=== PATIENT | female | born 1970 | race African-American/Black ===

== ENCOUNTER 2016-12-06 22:03 | Emergency (ER) | payer OTHER ==
[2016-12-06 22:10] VITALS: BP 174/90; PULSE 77; TEMP 97.6; BMI 26.5
--- NOTE | 2016-12-06 22:41 | PDOC ---
History of Present Illness - General History Source: Patient Exam Limitations: No Limitations - History of Present Illness Initial Comments: 12/06/16 22:53 The patient is a 46 year old female (), with a significant past medical history of GERD, kidney stones, and renal calculi, who presents to the emergency department complaining of episodes of nausea and vomiting since approximately 20:45 this evening. The patient reports she had salmon for lunch at approximately 14:00 this afternoon, after which she was asymptomatic. The patient reports eating the same salmon, a cinnamon roll, and milk at approximately 20:45 after which she began to feel associated tightness in her throat. The patient denies any difficulty breathing or throat swelling. Subsequently she began to feel nauseous and reports approximately 5 episodes of emesis. The patient reports some episodes of hemoptysis. During examination, the patient experienced an emetic episode that was nonbloody/ nonbilious, and beige-colored. The patient denies any associated diarrhea or constipation. The patient denies any fever, chills, cough, headache, or dizziness. The patient denies any dysuria, hematuria, frequency, or urgency. The patient denies any recent travel or sick contacts. Allergies: NKDA, peanuts Past Surgical History: Cholecystectomy(2010) Social History: Non-smoker. Denies alcohol or drug use. PCP: Dr. Marilyn Tijerina <Tiffanie Page - Last Filed: 12/06/16 22:52> - General History Source: Patient <Reji Awad - Last Filed: 12/06/16 23:58> - General Chief Complaint: Nausea/Vomiting Stated Complaint: NAUSEA/VOMITING Time Seen by Provider: 12/06/16 22:41 Past History <Tiffanie Page - Last Filed: 12/06/16 22:52> - Past Medical History Anemia: No Asthma: No Cancer: No Cardiac Disorders: No CVA: No COPD: No CHF: No Dementia: No Diabetes: No GI Disorders: Yes (GERD) Disorders: Yes (RENAL CALCULI) HTN: No Hypercholesterolemia: No Kidney Stones: Yes Liver Disease: No Seizures: No Thyroid Disease: Yes - Surgical History Abdominal Surgery: No Appendectomy: No Cardiac Surgery: No Cholecystectomy: Yes (2010) Lung Surgery: No Neurologic Surgery: No Orthopedic Surgery: No - Reproductive History (#): 3 Para: 2 - Immunization History Immunization Up to Date: Yes - Psycho/Social/Smoking Cessation Hx Anxiety: No Suicidal Ideation: No Smoking History: Never smoked Have you smoked in the past 12 months: No Information on smoking cessation initiated: No Hx Alcohol Use: No Drug/Substance Use Hx: No Substance Use Type: None Hx Substance Use Treatment: No <Reji Awad - Last Filed: 12/06/16 23:58> - Past Medical History Allergies/Adverse Reactions: Allergies Allergy/AdvReac Type Severity Reaction Status Date / Time No Known Drug Allergies Allergy Verified 12/06/16 22:08 peanut Allergy Verified 12/06/16 22:08 Home Medications: Ambulatory Orders Unobtainable [Unobtainable] 03/02/16 Review of Systems - Review of Systems Able to Perform ROS?: Yes Comments:: 12/06/16 22:57 CONSTITUTIONAL: Absent: fever, no chills, no fatigue EYES: Absent: visual changes ENT: Present: +throat tightness Absent: ear pain, no sore throat CARDIOVASCULAR: Absent: chest pain, no palpitations RESPIRATORY: Absent: cough, no SOB GI: Present: +nausea, +vomiting, +hemoptysis Absent: abdominal pain, no constipation, no diarrhea GENITOURINARY: Absent: dysuria, no frequency, no hematuria MUSKULOSKELETAL: Absent: back pain, no arthralgia, no myalgia SKIN: Absent: rash NEURO: Absent: headache <Page,Giomilsy - Last Filed: 12/06/16 22:52> *Physical Exam - Vital Signs Last Vital Signs Temp Pulse Resp BP Pulse Ox 97.6 F 77 20 174/90 100 12/06/16 22:09 12/06/16 22:09 12/06/16 22:09 12/06/16 22:09 12/06/16 22:09 - Physical Exam Comments: 12/06/16 23:02 GENERAL: Well-appearing, well-nourished. No apparent distress. HEENT: Normocephalic, atraumatic. PERRLA, EOMI. No conjunctival pallor. Sclera are non- icteric. Moist mucous membranes. Oropharynx is clear. CARDIOVASCULAR: Normal S1, S2. Regular rate and rhythm. PULMONARY: Clear to auscultation bilaterally. ABDOMEN: Soft, non-distended. Epigastric tenderness to palpation with no guarding or rebound. EXTREMITIES: Normal ROM in all four extremities. No gross deformities. SKIN: Warm, dry. No rash NEUROLOGICAL: No focal neurological deficits. <Tiffanie Page - Last Filed: 12/06/16 22:52> - Vital Signs Last Vital Signs Temp Pulse Resp BP Pulse Ox 97.6 F 77 20 174/90 100 12/06/16 22:09 12/06/16 22:09 12/06/16 22:09 12/06/16 22:09 12/06/16 22:09 <Reji Awad - Last Filed: 12/06/16 23:58> ED Treatment Course - LABORATORY CBC & Chemistry Diagram: 12/06/16 20:45 12/06/16 20:45 - Medications Given in the ED: ED Medications Discontinued Medications Generic Name Dose Route Start Last Admin Trade Name Freq PRN Reason Stop Dose Admin Ondansetron HCl 4 mg 12/06/16 22:46 12/06/16 22:47 Zofran Injection IVPUSH 12/06/16 22:47 4 mg NOW ONE Administration Sodium Chloride 1,000 ml 12/06/16 22:46 12/06/16 22:46 Normal Saline - IV 12/06/16 22:47 1,000 ml NOW ONE Administration <Tiffanie Page - Last Filed: 12/06/16 22:52> - LABORATORY CBC & Chemistry Diagram: 12/06/16 20:45 12/06/16 20:45 <Reji Awad - Last Filed: 12/06/16 23:58> Medical Decision Making - Medical Decision Making 12/06/16 23:57 Dr. Awad: The scribe's documentation has been prepared under my direction and personally reviewed by me in its entirery. I confirm that the note above accurately reflects all work, treatment, procedures, and medical decision making performed by me. patient now feels better after treatment in the department. Will discharge <Reji Awad - Last Filed: 12/06/16 23:58> *DC/Admit/Observation/Transfer - Attestations Scribe Attestion: 12/06/16 23:04 Documentation prepared by Tiffanie Page, acting as medical services assistant for Reji Awad DO. <Tiffanie Page - Last Filed: 12/06/16 22:52> - Discharge Dispostion Admit: No <Reji Awad - Last Filed: 12/06/16 23:58> Diagnosis at time of Disposition: Abdominal pain Qualifiers: Abdominal location: generalized Qualified Code(s): R10.84 - Generalized abdominal pain Nausea & vomiting Qualifiers: Vomiting type: unspecified Vomiting Intractability: non-intractable Qualified Code(s): R11.2 - Nausea with vomiting, unspecified - Discharge Dispostion Disposition: HOME Condition at time of disposition: Stable - Referrals Referrals: Marilyn Tijerina [Primary Care Provider] - - Patient Instructions Printed Discharge Instructions: DI for Nausea -- Adult, DI for Vomiting -- Adult, DI for Abdominal Pain-Adult
[2016-12-06] MEDS ORDERED: SODIUM CHLORIDE 0.9% 1000 ML INFUS.BAG IV ONE (22:46)
[2016-12-06] MEDS ORDERED: ONDANSETRON 4 MG/2 ML VIAL IVPUSH ONE (22:46)
[2016-12-06 23:02] LABS: BASOPHIL 0.4 % (0-2.0); MCH 29.4 pg (25.7-33.7); MCHC 33.8 g/dl (32.0-36.0); MEAN PLT VOLUME 8.3 fl (7.5-11.1); NEUTROPHILS 59.9 % (42.8-82.8); PLATELET COUNT 246 K/MM3 (134-434); RDW 14.1 % (11.6-15.6)
[2016-12-06 23:16] LABS: ALBUMIN 3.8 g/dl (3.4-5.0); AMYLASE 83 U/L (25-115); ANION GAP 10 (8-16); BILIRUBIN,TOTAL 0.4 mg/dL (0.2-1.0); CALCIUM 9.2 mg/dL (8.5-10.1); CO2 26 mmol/L (21-32); CREATININE 0.8 mg/dL (0.55-1.02); GLUCOSE,RANDOM 92 mg/dL (74-106); SGPT/ALT 59 U/L (12-78); TOT PROT 7.3 g/dl (6.4-8.2)
[2016-12-06 23:17] LABS: ALK PHOS 91 U/L (45-117)
[2016-12-06 23:30] LABS: SGOT/AST 27 U/L (15-37)
== END 2016-12-07 00:07 | disposition home or self-care (01) ==
LOC: JER 22:03
DX: R10.84 Generalized abdominal pain (principal); R11.2 Nausea with vomiting, unspecified; K21.9 Gastro-esophageal reflux disease without esophagitis
CPT/HCPCS: 36415; 80053; 82150; 83690; 84703; 85025; 99281-25

== ENCOUNTER 2017-03-19 08:22 | Emergency (ER) | payer OTHER ==
[2017-03-19 08:33] VITALS: BP 138/95; PULSE 69; TEMP 97.9; BMI 30.1
[2017-03-19] MEDS ORDERED: KETOROLAC TROMETHAMINE 60 MG/2 ML VIAL IM ONE (09:39)
[2017-03-19] MEDS ORDERED: KETOROLAC TROMETHAMINE 60 MG/2 ML VIAL ONE (09:41)
--- NOTE | 2017-03-19 10:23 | PDOC ---
History of Present Illness - General Chief Complaint: Pain, Acute Stated Complaint: PAIN/ SHOULDERS, BACK Time Seen by Provider: 03/19/17 08:58 History Source: Patient Exam Limitations: No Limitations - History of Present Illness Initial Comments: 03/19/17 10:22 46 yr female with c/o waking up with neck pain 3-4 days ago getting worse with movement. no fever or headache. pt did not take any meds for pain. Past History - Past Medical History Allergies/Adverse Reactions: Allergies Allergy/AdvReac Type Severity Reaction Status Date / Time No Known Drug Allergies Allergy Verified 03/19/17 08:32 peanut Allergy Verified 03/19/17 08:32 Home Medications: Ambulatory Orders Diazepam [Valium] 2 mg PO TID PRN #12 tablet MDD 6mg 03/19/17 Naproxen [Naprosyn -] 500 mg PO BID PRN #14 tablet 03/19/17 Anemia: No Asthma: No Cancer: No Cardiac Disorders: No CVA: No COPD: No CHF: No Dementia: No Diabetes: No GI Disorders: Yes (GERD) Disorders: Yes (RENAL CALCULI) HTN: No Hypercholesterolemia: No Kidney Stones: Yes Liver Disease: No Seizures: No Thyroid Disease: Yes - Surgical History Abdominal Surgery: No Appendectomy: No Cardiac Surgery: No Cholecystectomy: Yes (2010) Lung Surgery: No Neurologic Surgery: No Orthopedic Surgery: No - Reproductive History (#): 3 Para: 2 - Immunization History Immunization Up to Date: Yes - Psycho/Social/Smoking Cessation Hx Anxiety: No Suicidal Ideation: No Smoking History: Never smoked Have you smoked in the past 12 months: No Information on smoking cessation initiated: No Hx Alcohol Use: No Drug/Substance Use Hx: No Substance Use Type: None Hx Substance Use Treatment: No *Physical Exam - Vital Signs Last Vital Signs Temp Pulse Resp BP Pulse Ox 97.9 F 69 18 138/95 100 03/19/17 08:31 03/19/17 08:31 03/19/17 08:31 03/19/17 08:31 03/19/17 08:31 - Physical Exam General Appearance: Yes: Nourished, Appropriately Dressed HEENT: positive: EOMI, TRUDY, Normal ENT Inspection, TMs Normal, Pharynx Normal Neck: positive: Normal Thyroid, Supple, Tender lateral (right muscle spasm TTP trapezius muscle right ). negative: Tender, Lymphadenopathy (R), Lymphadenopathy (L), Rigidity, Tender midline Respiratory/Chest: positive: Lungs Clear, Normal Breath Sounds Cardiovascular: positive: Regular Rhythm, Regular Rate Gastrointestinal/Abdominal: positive: Normal Bowel Sounds, Soft Musculoskeletal: positive: Normal Inspection Extremity: positive: Normal Capillary Refill, Normal Inspection, Normal Range of Motion Integumentary: positive: Normal Color, Dry, Warm Neurologic: positive: Fully Oriented, Alert, Normal Mood/Affect, Normal Response , Motor Strength 02/22 ED Treatment Course - ADDITIONAL ORDERS Additional order review: Laboratory Results 03/19/17 08:52 Urine HCG, Qual Negative - RADIOLOGY Radiology Studies Ordered: Category Date Time Status SPINE-CERVICAL [RAD] Stat Radiology 03/19/17 09:39 Taken - Medications Given in the ED: ED Medications Discontinued Medications Generic Name Dose Route Start Last Admin Trade Name Freq PRN Reason Stop Dose Admin Ketorolac Tromethamine 60 mg 03/19/17 09:39 03/19/17 09:40 Toradol Injection - IM 03/19/17 09:40 60 mg ONCE ONE Administration Medical Decision Making - Medical Decision Making 03/19/17 10:40 cc: woke up 3 days ago with nuck pain now has spasm limited ROM due to pain pt denies trauma no fever, no headache no foreign travel will give toradol neck xray 03/19/17 18:42 xray reviewed with pt. pt is to follow with orthopedist this week, call tomorrow to make appointment pt understands the follow up plan all questions asked and answered at discharge. 03/19/17 18:43 *DC/Admit/Observation/Transfer Diagnosis at time of Disposition: Muscle spasm - Discharge Dispostion Disposition: HOME Condition at time of disposition: Good - Prescriptions Prescriptions: Naproxen [Naprosyn -] 500 mg PO BID PRN #14 tablet PRN Reason: Pain Diazepam [Valium] 2 mg PO TID PRN #12 tablet MDD 6mg PRN Reason: Muscle Spasms - Referrals Referrals: Marilyn Tijerina [Primary Care Provider] - Kit Rainey MD [Staff Physician] - - Patient Instructions Printed Discharge Instructions: DI for Muscle Strain Additional Instructions: take the medication as prescribed for inflamation, pain and muscle spasm apply warm compresses, heating pad to area of pain every 3 hrs for 20 minutes follow with the orthopedist or tomorrow Return if any worsening symptoms [place] la medicacin segn lo prescrito para la inflamacin, el dolor y el espasmo del msculo Aplique compresas calientes, almohadilla de calefaccin al meena del dolor cada 3 horas por 20 minutos Seguir con el ortopedista o maana Devolver si hay sntomas que empeoran Print Language: FAROESE - Post Discharge Activity Work/School Note: Back to Work
== END 2017-03-19 10:54 | disposition home or self-care (01) ==
LOC: JERFT 08:22
PROC: 3E0233Z Introduction of Anti-inflammatory into Muscle, Percutaneous Approach (ICD-10-PCS; principal; 2017-03-19)
DX: M62.838 Other muscle spasm (principal)
CPT/HCPCS: 72050-TC; 84703; 96372; 99281-25

== ENCOUNTER 2017-07-10 19:22 | Emergency (ER) | payer OTHER ==
[2017-07-10 19:34] VITALS: TEMP 98.5
[2017-07-10 22:45] LABS: BASOPHIL 0.8 % (0-2.0); MCH 29.6 pg (25.7-33.7); MCHC 33.6 g/dl (32.0-36.0); MEAN CELL VOLUME 88.1 fl (80-96); MEAN PLT VOLUME 8.1 fl (7.5-11.1); NEUTROPHILS 57.7 % (42.8-82.8); PLATELET COUNT 226 K/MM3 (134-434); RDW 14.8 % (11.6-15.6); WHITE BLOOD COUNT 9.8 K/mm3 (4.0-10.0)
[2017-07-10 22:57] LABS: URINE APPEARANCE CLEAR; URINE BILIRUBIN NEGATIVE (NEGATIVE); URINE BLOOD NEGATIVE (NEGATIVE); URINE COLOR STRAW; URINE GLUCOSE (UA) NEGATIVE (NEGATIVE); URINE KETONE NEGATIVE (NEGATIVE); URINE LEUK ESTERASE NEGATIVE (NEGATIVE); URINE NITRITE NEGATIVE (NEGATIVE); URINE PROTEIN NEGATIVE (NEGATIVE); URINE UROBILINOGEN NEGATIVE mg/dL (0.2-1.0)
[2017-07-10] MEDS ORDERED: KETOROLAC TROMETHAMINE 30 MG/1 ML VIAL IM ONE (23:13)
[2017-07-10] MEDS ORDERED: diazePAM 5 MG TABLET PO ONE (23:14)
[2017-07-10 23:18] LABS: ALBUMIN 3.9 g/dl (3.4-5.0); ANION GAP 8 (8-16); BILIRUBIN,TOTAL 0.5 mg/dL (0.2-1.0); CO2 25 mmol/L (21-32); CREATININE 0.8 mg/dL (0.55-1.02); GLUCOSE,RANDOM 83 mg/dL (74-106); SGOT/AST 19 U/L (15-37); SGPT/ALT 36 U/L (12-78); TOT PROT 7.7 g/dl (6.4-8.2)
[2017-07-10 23:20] LABS: ALK PHOS 99 U/L (45-117); CPK 128 IU/L (26-192); TROPONIN I 0.03 ng/ml (0.00-0.05)
[2017-07-10] MEDS ORDERED: diazePAM 5 MG TABLET ONE (23:23)
[2017-07-10] MEDS ORDERED: KETOROLAC TROMETHAMINE 30 MG/1 ML VIAL ONE (23:24)
--- NOTE | 2017-07-11 00:54 | PDOC ---
History of Present Illness - General Chief Complaint: Pain Stated Complaint: PAIN, ACUTE Time Seen by Provider: 07/10/17 21:35 History Source: Patient, Trim Mounter Used Exam Limitations: Language Barrier - History of Present Illness Initial Comments: 07/11/17 00:50 47yo Female patient w/ PmHx: Right arm pain and diffuse musculoskeletal pain presents to ED c/o bilateral arm pain w/ diffuse muscle pain x 3 days not getting better. Patient states she use to see a "doctor for injections." She does not remember this doctor or what medication was given. She denies CP, Abd pain, diff breathing, shortness of breath, rash, or any other complaints at this time. Patient is not really clear as to why she is here. Difficulty with social media intern and getting information from patient as to what brought her to ED. Ranch Helper had to clarify patients' response to my question every time a question was asked. Ranch Helper [id number] Past History - Travel Traveled outside of the country in the last 30 days: No Close contact w/someone who was outside of country & ill: No - Past Medical History Allergies/Adverse Reactions: Allergies Allergy/AdvReac Type Severity Reaction Status Date / Time No Known Drug Allergies Allergy Verified 07/10/17 19:32 peanut Allergy Verified 07/10/17 19:32 Home Medications: Ambulatory Orders Diazepam [Valium] 2 mg PO TID PRN #12 tablet MDD 6mg 03/19/17 Naproxen [Naprosyn -] 500 mg PO BID PRN #14 tablet 03/19/17 Ibuprofen 600 mg PO Q6H PRN #30 tablet 07/11/17 Methocarbamol [Robaxin -] 750 mg PO Q8H PRN #21 tablet 07/11/17 Anemia: No Asthma: No Cancer: No Cardiac Disorders: No CVA: No COPD: No CHF: No Dementia: No Diabetes: No GI Disorders: Yes (GERD) Disorders: Yes (RENAL CALCULI) HTN: No Hypercholesterolemia: No Kidney Stones: Yes Liver Disease: No Seizures: No Thyroid Disease: Yes - Surgical History Abdominal Surgery: No Appendectomy: No Cardiac Surgery: No Cholecystectomy: Yes (2010) Lung Surgery: No Neurologic Surgery: No Orthopedic Surgery: No - Reproductive History (#): 3 Para: 2 - Immunization History Immunization Up to Date: Yes - Suicide/Smoking/Psychosocial Hx Smoking History: Never smoked Have you smoked in the past 12 months: No Hx Alcohol Use: No Drug/Substance Use Hx: No Substance Use Type: None Hx Substance Use Treatment: No Review of Systems - Review of Systems Able to Perform ROS?: Yes Is the patient limited [place]an proficient: No Constitutional: No: Chills, Fever Musculoskeletal: Yes: Joint Pain, Muscle Pain All Other Systems: Reviewed and Negative *Physical Exam - Vital Signs Last Vital Signs Temp Pulse Resp BP Pulse Ox 98.5 F 73 18 147/93 100 07/10/17 19:32 07/10/17 19:32 07/10/17 19:32 07/10/17 19:32 07/10/17 19:32 - Physical Exam General Appearance: Yes: Nourished, Appropriately Dressed. No: Apparent Distress, Mild Distress, Moderate Distress, Severe Distress Neck: positive: Trachea midline, Normal Thyroid, Supple. negative: Stridor, Lymphadenopathy (R), Lymphadenopathy (L) Respiratory/Chest: positive: Lungs Clear, Normal Breath Sounds. negative: Chest Tender, Respiratory Distress, Accessory Muscle Use, Labored Respiration, Rapid RR, Rhonchi, Stridor, Wheezing Cardiovascular: positive: Regular Rhythm, Regular Rate Gastrointestinal/Abdominal: positive: Normal Bowel Sounds, Soft. negative: Distended, Guarding, Rebound, Tenderness Musculoskeletal: positive: Normal Inspection. negative: CVA Tenderness, Decreased Range of Motion, Vertebral Tenderness Extremity: positive: Normal Capillary Refill, Normal Inspection, Normal Range of Motion. negative: Pedal Edema, Swelling, Calf Tenderness, Erythema, Inflammation Integumentary: positive: Normal Color, Dry, Warm. negative: Erythema, Diaphoresis, Hives, Rash, Swelling Neurologic: positive: sales marketing II-XII NML intact, Fully Oriented, Alert, Normal Mood/ Affect, Normal Response, Motor Strength 5/5 ED Treatment Course - LABORATORY CBC & Chemistry Diagram: 07/10/17 22:30 07/10/17 22:30 - ADDITIONAL ORDERS Additional order review: Laboratory Results 07/10/17 07/10/17 22:45 22:30 Sodium 139 Potassium 4.4 Chloride 106 Carbon Dioxide 25 Anion Gap 8 BUN 16 Creatinine 0.8 Creat Clearance w eGFR > 60 Random Glucose 83 Calcium 9.0 Total Bilirubin 0.5 AST 19 D ALT 36 D Alkaline Phosphatase 99 Creatine Kinase 128 Troponin I 0.03 Total Protein 7.7 Albumin 3.9 Urine Color Straw Urine Appearance Clear Urine pH 7.0 Urine Protein Negative Urine Glucose (UA) Negative Urine Ketones Negative Urine Blood Negative Urine Nitrite Negative Urine Bilirubin Negative Urine Urobilinogen Negative Urine HCG, Qual Negative 07/10/17 22:30 RBC 4.32 MCV 88.1 MCHC 33.6 RDW 14.8 MPV 8.1 Neutrophils % 57.7 Lymphocytes % 31.4 Monocytes % 9.1 Eosinophils % 1.0 Basophils % 0.8 - Medications Given in the ED: ED Medications Discontinued Medications Generic Name Dose Route Start Last Admin Trade Name Freq PRN Reason Stop Dose Admin Diazepam 5 mg 07/10/17 23:14 07/10/17 23:29 Valium - PO 07/10/17 23:15 5 mg ONCE ONE Administration Ketorolac Tromethamine 30 mg 07/10/17 23:13 07/10/17 23:29 Toradol Injection - IM 07/10/17 23:14 30 mg ONCE ONE Administration *DC/Admit/Observation/Transfer Diagnosis at time of Disposition: Musculoskeletal pain - Discharge Dispostion Disposition: HOME Condition at time of disposition: Improved Admit: No - Prescriptions Prescriptions: Ibuprofen 600 mg PO Q6H PRN #30 tablet PRN Reason: Mild Pain Methocarbamol [Robaxin -] 750 mg PO Q8H PRN #21 tablet PRN Reason: Muscle Pain - Referrals Referrals: Marilyn Tijerina [Primary Care Provider] - Kit Rainey MD [Staff Physician] - - Patient Instructions Printed Discharge Instructions: DI for Musculoskeletal Pain Additional Instructions: Jose el seguimiento con cisse proveedor de atencin primaria esta semana. Llame para programar tl colette para tl evaluacin ms detallada. Isabella la medicacin segn lo prescrito. Seguimiento con el Dr. Rainey / jayme (ortopedista). Follow up with your primary care provider this week. Call to schedule appointment for further evaluation. Take medication as prescribed. Follow up with Dr. Rainey/Concepción (Orthopedist). Print Language: KHMER - Post Discharge Activity
[2017-07-11] MEDS ORDERED: DEXAMETHASONE SOD PHOSPHATE 10 MG/1 ML VIAL IM ONE (00:57)
--- NOTE | 2017-07-11 01:02 | PDOC ---
*Physical Exam - Vital Signs Last Vital Signs Temp Pulse Resp BP Pulse Ox 98.5 F 73 18 147/93 100 07/10/17 19:32 07/10/17 19:32 07/10/17 19:32 07/10/17 19:32 07/10/17 19:32 ED Treatment Course - LABORATORY CBC & Chemistry Diagram: 07/10/17 22:30 07/10/17 22:30 - ADDITIONAL ORDERS Additional order review: Laboratory Results 07/10/17 07/10/17 22:45 22:30 Sodium 139 Potassium 4.4 Chloride 106 Carbon Dioxide 25 Anion Gap 8 BUN 16 Creatinine 0.8 Creat Clearance w eGFR > 60 Random Glucose 83 Calcium 9.0 Total Bilirubin 0.5 AST 19 D ALT 36 D Alkaline Phosphatase 99 Creatine Kinase 128 Troponin I 0.03 Total Protein 7.7 Albumin 3.9 Urine Color Straw Urine Appearance Clear Urine pH 7.0 Urine Protein Negative Urine Glucose (UA) Negative Urine Ketones Negative Urine Blood Negative Urine Nitrite Negative Urine Bilirubin Negative Urine Urobilinogen Negative Urine HCG, Qual Negative 07/10/17 22:30 RBC 4.32 MCV 88.1 MCHC 33.6 RDW 14.8 MPV 8.1 Neutrophils % 57.7 Lymphocytes % 31.4 Monocytes % 9.1 Eosinophils % 1.0 Basophils % 0.8 - Medications Given in the ED: ED Medications Discontinued Medications Generic Name Dose Route Start Last Admin Trade Name Lópezq PRN Reason Stop Dose Admin Diazepam 5 mg 07/10/17 23:14 07/10/17 23:29 Valium - PO 07/10/17 23:15 5 mg ONCE ONE Administration Ketorolac Tromethamine 30 mg 07/10/17 23:13 07/10/17 23:29 Toradol Injection - IM 07/10/17 23:14 30 mg ONCE ONE Administration Medical Decision Making - Medical Decision Making 07/11/17 01:02 agree with care from JONES Lennon *DC/Admit/Observation/Transfer - Referrals Referrals: Marilyn Tijerina [Primary Care Provider] - - Patient Instructions Print Language: NEPALI - Post Discharge Activity
[2017-07-11] MEDS ORDERED: DEXAMETHASONE SOD PHOSPHATE 10 MG/1 ML VIAL ONE (01:52)
[2017-07-11 01:59] VITALS: BP 141/89; PULSE 70
--- NOTE | 2017-07-11 10:25 | EKG ---
Test Reason : Blood Pressure : / mmHG Vent. Rate : 059 BPM Atrial Rate : 059 BPM P-R Int : 178 ms QRS Dur : 070 ms QT Int : 382 ms P-R-T Axes : 048 056 020 degrees QTc Int : 378 ms SINUS BRADYCARDIA OTHERWISE NORMAL ECG WHEN COMPARED WITH ECG OF 10-DEC-2015 08:05, VENT. RATE HAS DECREASED BY 42 BPM NONSPECIFIC T WAVE ABNORMALITY NO LONGER EVIDENT IN ANTERIOR LEADS Confirmed by LIVIA CALLEJAS, SUZETTE ([id number]) on 07/11/2017 10:25:13 AM Referred By: Confirmed By:SUZETTE BHAKTA MD
== END 2017-07-11 02:05 | disposition home or self-care (01) ==
LOC: JER 19:22
PROC: 3E023GC Introduction of Other Therapeutic Substance into Muscle, Percutaneous Approach (ICD-10-PCS; principal; 2017-07-10)
PROC: 3E0233Z Introduction of Anti-inflammatory into Muscle, Percutaneous Approach (ICD-10-PCS; 2017-07-10)
DX: M79.1 Myalgia (principal)
CPT/HCPCS: 36415; 80053; 81003; 84484; 84703; 85025; 93005; 93010; 99282-25

== ENCOUNTER 2017-10-15 15:53 | Emergency (ER) | payer OTHER ==
--- NOTE | 2017-10-15 16:05 | PDOC ---
Rapid Medical Evaluation Chief Complaint: Lightheaded Time Seen by Provider: 10/15/17 16:02 Medical Evaluation: Allergies Allergy/AdvReac Type Severity Reaction Status Date / Time No Known Drug Allergies Allergy Verified 10/15/17 16:02 peanut Allergy Verified 10/15/17 16:02 10/15/17 16:02 Pt presents to the ED: feels dizzy and feels like she is notting getting air Pt on brief exam: bp 166/103, lcta Pt ordered for : ekg Pt to proceed to the ED Discharge Disposition - Diagnosis Dizziness - Referrals - Patient Instructions - Post Discharge Activity
[2017-10-15 16:08] VITALS: BMI 30.2
[2017-10-15] MEDS ORDERED: MECLIZINE HCL 25 MG TABLET (FP) PO ONE (22:35)
[2017-10-15] MEDS ORDERED: MECLIZINE HCL 25 MG TABLET (FP) ONE ×2 (23:05→23:36)
--- NOTE | 2017-10-15 23:30 | PDOC ---
History of Present Illness - General History Source: Patient Exam Limitations: No Limitations - History of Present Illness Initial Comments: This is a 47 YOF with h/o kidney stones, cholecystectomy, and x2 who presents c/o mild dizziness, dry cough, and mild SOB for the past 5 days. She has not taken any medications for the symptoms and has not had this dizziness or SOB before. She denies any recent sick contacts, and denies any chest pain, fever, chills, nausea, vomiting, numbness, tingling, focal weakness, change in vision, sore throat, headache, palpitations, leg swelling, personal or family history of blood clots, recent immobilization or surgery or travel, exogenous estrogen or OCP use. <Paige Johnson - Last Filed: 10/15/17 22:37> <Addi Portillo - Last Filed: 10/16/17 01:40> - General Chief Complaint: Lightheaded Stated Complaint: SHORTNESS OF BREATH Time Seen by Provider: 10/15/17 16:02 Past History - Past Medical History Anemia: No Asthma: No Cancer: No Cardiac Disorders: No CVA: No COPD: No CHF: No Dementia: No Diabetes: No GI Disorders: Yes (GERD) Disorders: Yes (RENAL CALCULI) HTN: No Hypercholesterolemia: No Kidney Stones: Yes Liver Disease: No Seizures: No Thyroid Disease: Yes - Surgical History Abdominal Surgery: No Appendectomy: No Cardiac Surgery: No Cholecystectomy: Yes (2010) Lung Surgery: No Neurologic Surgery: No Orthopedic Surgery: No - Reproductive History (#): 3 Para: 2 - Immunization History Immunization Up to Date: Yes - Suicide/Smoking/Psychosocial Hx Smoking History: Never smoked Have you smoked in the past 12 months: No Hx Alcohol Use: No Drug/Substance Use Hx: No Substance Use Type: None Hx Substance Use Treatment: No <Paige Johnson - Last Filed: 10/15/17 22:37> <Addi Portillo - Last Filed: 10/16/17 01:40> - Past Medical History Allergies/Adverse Reactions: Allergies Allergy/AdvReac Type Severity Reaction Status Date / Time No Known Drug Allergies Allergy Verified 10/15/17 16:02 peanut Allergy Verified 10/15/17 16:02 Home Medications: Ambulatory Orders Naproxen [Naprosyn -] 500 mg PO BID PRN #14 tablet 03/19/17 Methocarbamol [Robaxin -] 750 mg PO Q8H PRN #21 tablet 07/11/17 Meclizine HCl [Antivert -] 25 mg PO TID #21 tablet 10/16/17 *Physical Exam - Vital Signs Last Vital Signs Temp Pulse Resp BP Pulse Ox 98.3 F 72 20 166/103 100 10/15/17 16:03 10/15/17 16:03 10/15/17 16:03 10/15/17 16:03 10/15/17 16:03 <Paige Johnson - Last Filed: 10/15/17 22:37> - Vital Signs Last Vital Signs Temp Pulse Resp BP Pulse Ox 98.2 F 63 18 144/97 100 10/16/17 01:32 10/16/17 01:32 10/16/17 01:32 10/16/17 01:32 10/16/17 01:32 <Addi Portillo - Last Filed: 10/16/17 01:40> ED Treatment Course - RADIOLOGY Radiology Studies Ordered: Category Date Time Status CHEST PA & LAT [RAD] Stat Radiology 10/15/17 22:35 Ordered <aPige Johnson - Last Filed: 10/15/17 22:37> - ADDITIONAL ORDERS Additional order review: Laboratory Results 10/15/17 22:36 Urine HCG, Qual Negative - Medications Given in the ED: ED Medications Discontinued Medications Generic Name Dose Route Start Last Admin Trade Name Freq PRN Reason Stop Dose Admin Meclizine HCl 25 mg 10/15/17 22:35 10/15/17 23:00 Antivert - PO 10/15/17 22:36 25 mg ONCE ONE Administration <Addi Portillo - Last Filed: 10/16/17 01:40> Medical Decision Making - Medical Decision Making 47 YOF presents with mild vertigo, mild SOB, and mild dry cough for the past 5 days. On exam VS wnl, there is no nystagmus on lateral gaze, neuro exam wnl, normal heart/lung sounds, normal HEENT exam. DDX IBNLT URI with vertigo, bronchitis/PNA, PE, ACS, etc. Ordered is EKG, U-preg and CXR, Meclizine 25 mg. <Paige Johnson - Last Filed: 10/15/17 22:37> *DC/Admit/Observation/Transfer - Discharge Dispostion Admit: No <Paige Johnson - Last Filed: 10/15/17 22:37> <Addi Portillo - Last Filed: 10/16/17 01:40> Diagnosis at time of Disposition: Dizziness, Cough Hypertension Qualifiers: Hypertension type: unspecified Qualified Code(s): I10 - Essential (primary) hypertension - Discharge Dispostion Disposition: HOME Condition at time of disposition: Stable - Referrals Referrals: pmd, one week [Other] - Patient Instructions Printed Discharge Instructions: DI for Vertigo, High Blood Pressure Additional Instructions: Haz visto en la sabiha de emergencias por mareos, toz, y dificultad respirar. Hicimos tl electrocardiograma, tl placa del pecho, y todo es normal. No esta embarazada. Dimos un medicamento por los mareos que se llama meclizine. Por favor usa meclizine si tiene mareos en casa (puede comprarlo en la farmacia). Es importante hacer tl colette con cisse doctor regular por 2-3 arias. Regrese a la sabiha de emergencias si tiene sintomas nuevas o que empeoran, zahra fiebre, dolor de theresa, dolor de pecho, palpitaciones, entumecimiento, hormigueo, debilidad de un parte del cuerpo, o otra sintoma. Print Language: KYRGYZ
--- NOTE | 2017-10-16 00:59 | PDOC ---
Attending Attestation - HPI HPI: 10/16/17 01:04 The patient is a 47 year old female, with a significant past medical history of kidney stones, cholecystectomy, and x2, who presents to the emergency department with mild shortness of breath, non-productive cough, and dizziness for about 5 days. She describes the dizziness as the bed moves as she is lying flat. She denies experiencing these symptoms in the past. She denies any recent sick contacts. She denies chest pain, headache. She denies fever, chills, nausea, vomit, diarrhea and constipation. She denies dysuria, frequency, urgency and hematuria. Allergies: NKDA - Documentation prepared by Cora Martin, acting as medical coding instructor for Addi Portillo MD <Cora Martin - Last Filed: 10/16/17 01:04> - Resident Resident Name: Paige Johnson - ED Attending Attestation I have performed the following: I have examined & evaluated the patient, The case was reviewed & discussed with the resident, I agree w/resident's findings & plan, Exceptions are as noted - Physicial Exam PE: 10/16/17 00:57 Patient is awake and alert, well-nourished, hypertensive on initial evaluation EXAMINATION CONSTITUTIONAL: Well-appearing; well-nourished; in no apparent distress HEAD: Normocephalic; atraumatic EYES: PERRL; EOM intact ENMT: External appears normal; normal oropharynx NECK: Supple; non-tender; no cervical lymphadenopathy CARD: Normal S1, S2; no murmurs, rubs, or gallops RESP: Normal chest excursion with respiration; breath sounds clear and equal bilaterally; no wheezes, rhonchi, or rales ABD: Soft, non-distended; non-tender; no palpable organomegaly, no palpable hernias EXT: Normal ROM in all four extremities; non-tender to palpation; distal pulses intact SKIN: Warm, dry, no rash NEURO: Cranial nerves II through XII are grossly intact; motor is 5 of 54; no pronation drift; gait is stable - Medical Decision Making 10/16/17 00:58 Patient is a well-appearing 47-year-old woman who presents with dizziness ( vertigo-like), shortness of breath and mild nonproductive cough for the past 5 days. Patient is mildly hypertensive on initial evaluation. EKG reveals no evidence of acute ischemia. Serial neurological exams within normal limit. Chest x-ray reveals no evidence of cardiomegaly/infiltrate or effusion. Patient is negative for PE by perc rule. I do not suspect ACS or posterior circulation deficiency. Viral syndrome suspected. We'll reassess. Likely discharge. 10/16/17 01:37 Patient reassessed. Patient is asymptomatic, blood pressure has decreased without intervention. No indication for initiation of antihypertensive therapy in the ED at this time. Will discharge with outpatient follow-up. <Addi Portillo - Last Filed: 10/16/17 01:38>
[2017-10-16 01:35] VITALS: BP 144/97; PULSE 63; TEMP 98.2
--- NOTE | 2017-10-16 13:26 | EKG ---
Test Reason : Blood Pressure : / mmHG Vent. Rate : 066 BPM Atrial Rate : 066 BPM P-R Int : 172 ms QRS Dur : 068 ms QT Int : 382 ms P-R-T Axes : 056 060 020 degrees QTc Int : 400 ms NORMAL SINUS RHYTHM NORMAL ECG WHEN COMPARED WITH ECG OF 10-JUL-2017 23:20, NO SIGNIFICANT CHANGE WAS FOUND Confirmed by BERKLEY GOMEZ MD ([id number]) on 10/16/2017 1:26:02 PM Referred By: Confirmed By:BERKLEY GOMEZ MD
--- NOTE | 2017-10-23 13:25 | EKG ---
Test Reason : Blood Pressure : / mmHG Vent. Rate : 071 BPM Atrial Rate : 071 BPM P-R Int : 178 ms QRS Dur : 066 ms QT Int : 394 ms P-R-T Axes : 073 072 033 degrees QTc Int : 428 ms NORMAL SINUS RHYTHM POSSIBLE LEFT ATRIAL ENLARGEMENT BORDERLINE ECG WHEN COMPARED WITH ECG OF 15-OCT-2017 16:11, NO SIGNIFICANT CHANGE WAS FOUND Confirmed by EDI DEAL MD ([id number]) on 10/23/2017 1:24:39 PM Referred By: Confirmed By:EDI DEAL MD
== END 2017-10-16 01:48 | disposition home or self-care (01) ==
LOC: JER 15:53
DX: I10 Essential (primary) hypertension (principal); R42 Dizziness and giddiness; R06.02 Shortness of breath
CPT/HCPCS: 71020-TC; 84703; 93005; 93010; 99283-25

== ENCOUNTER 2018-01-27 00:02 | Emergency (ER) | payer OTHER ==
[2018-01-27 00:24] VITALS: BMI 33.0
--- NOTE | 2018-01-27 01:54 | PDOC ---
History of Present Illness - General History Source: Patient Exam Limitations: No Limitations - History of Present Illness Initial Comments: 01/27/18 02:07 The patient is a 47 year old female with a significant past medical history of ovarian cyst who presents to the ED with complaints of back pain and abdominal pain for 2 days. The patient reports bilateral lower back pain that radiates to her abdomen. Patient states her pain is worsened at night. Patient also reports dysuria, one episode of hematuria, generalized weakness and slight nausea associated with present symptoms. She states she had one bowel movement earlier today after 2 days of constipation. She reports taking advil with slight relief of present symptoms. Denies fever or chills. Denies chest pain or shortness of breath. Denies flank pain. Denies any other symptoms. <Amara iMchelle - Last Filed: 01/27/18 04:25> <Taty Mccartney - Last Filed: 02/01/18 19:41> - General Chief Complaint: Back Pain Stated Complaint: BACK PAIN Time Seen by Provider: 01/27/18 00:52 Past History <Amara Michelle - Last Filed: 01/27/18 04:25> - Past Medical History Anemia: No Asthma: No Cancer: No Cardiac Disorders: No CVA: No COPD: No CHF: No Dementia: No Diabetes: No GI Disorders: Yes (GERD) Disorders: Yes (RENAL CALCULI) HTN: No Hypercholesterolemia: No Kidney Stones: Yes Liver Disease: No Seizures: No Thyroid Disease: Yes - Surgical History Abdominal Surgery: No Appendectomy: No Cardiac Surgery: No Cholecystectomy: Yes (2010) Lung Surgery: No Neurologic Surgery: No Orthopedic Surgery: No - Reproductive History (#): 3 Para: 2 - Immunization History Immunization Up to Date: Yes - Suicide/Smoking/Psychosocial Hx Smoking History: Never smoked Have you smoked in the past 12 months: No Hx Alcohol Use: No Drug/Substance Use Hx: No Substance Use Type: None Hx Substance Use Treatment: No <Taty Mccartney - Last Filed: 02/01/18 19:41> - Past Medical History Allergies/Adverse Reactions: Allergies Allergy/AdvReac Type Severity Reaction Status Date / Time No Known Drug Allergies Allergy Verified 01/27/18 00:05 peanut Allergy Verified 01/27/18 00:05 Home Medications: Ambulatory Orders Naproxen [Naprosyn -] 500 mg PO BID PRN #14 tablet 03/19/17 Methocarbamol [Robaxin -] 750 mg PO Q8H PRN #21 tablet 07/11/17 Meclizine HCl [Antivert -] 25 mg PO TID #21 tablet 10/16/17 Azithromycin [Zithromax Tri-Mango (3 DAYS) -] 500 mg PO DAILY #3 tablet 01/27/18 Sulfamethoxazole/Trimethoprim [Bactrim Ds -] 1 tab PO BID #14 tablet 01/29/18 Review of Systems - Review of Systems Able to Perform ROS?: Yes Comments:: 01/27/18 02:07 CONSTITUTIONAL: + generalized weakness Absent: fever, chills, diaphoresis, malaise, loss of appetite HEENT: Absent: rhinorrhea, nasal congestion, throat pain, throat swelling, difficulty swallowing, mouth swelling, ear pain, eye pain, visual Changes CARDIOVASCULAR: Absent: chest pain, syncope, palpitations, irregular heart rate, lightheadedness , peripheral edema RESPIRATORY: Absent: cough, shortness of breath, dyspnea with exertion, orthopnea, wheezing, stridor, hemoptysis GASTROINTESTINAL: + abdominal pain, nausea Absent: abdominal distension, vomiting, diarrhea, constipation, melena, hematochezia GENITOURINARY: + dysuria, hematuria Absent: frequency, urgency, hesitancy, flank pain, genital pain MUSCULOSKELETAL: + back pain Absent: myalgia, arthralgia, joint swelling SKIN: Absent: rash, itching, pallor HEMATOLOGIC/IMMUNOLOGIC: Absent: easy bleeding, easy bruising, lymphadenopathy, frequent infections ENDOCRINE: Absent: unexplained weight gain, unexplained weight loss, heat intolerance, cold intolerance NEUROLOGIC: Absent: headache, focal weakness or paresthesias, dizziness, unsteady gait, seizure, mental status changes, bladder or bowel incontinence PSYCHIATRIC: Absent: anxiety, depression, suicidal or homicidal ideation, hallucinations. All Other Systems: Reviewed and Negative <Amara Michelle - Last Filed: 01/27/18 04:25> *Physical Exam - Vital Signs Last Vital Signs Temp Pulse Resp BP Pulse Ox 97.9 F 75 16 154/100 97 01/27/18 00:06 01/27/18 00:06 01/27/18 00:06 01/27/18 00:06 01/27/18 00:06 - Physical Exam Comments: 01/27/18 02:07 GENERAL: Well developed, well nourished. Awake and alert. No acute distress. HEENT: Normocephalic, atraumatic. PERRLA, EOMI. No conjunctival pallor. Sclera are non- icteric. Moist mucous membranes. Oropharynx is clear. NECK: Supple. Full ROM. No JVD. Carotid pulses 2+ and symmetric, without bruits. No thyromegaly. No lymphadenopathy. CARDIOVASCULAR: Regular rate and rhythm. No murmurs, rubs, or gallops. Distal pulses are 2+ and symmetric. PULMONARY: No evidence of respiratory distress. Lungs clear to auscultation bilaterally. No wheezing, rales or rhonchi. ABDOMINAL: + gassy bowel sounds, diffuse tenderness Soft. Non-distended. No rebound or guarding. No organomegaly. MUSCULOSKELETAL Normal range of motion at all joints. No bony deformities or tenderness. No CVA tenderness. EXTREMITIES: No cyanosis. No clubbing. No edema. No calf tenderness. SKIN: Warm and dry. Normal capillary refill. No rashes. No jaundice. NEUROLOGICAL: Alert, awake, appropriate. Cranial nerves 2-12 intact. No deficits to light touch and temperature in face, upper extremities and lower extremities. No motor deficits in the in face, upper extremities and lower extremities. Normoreflexic in the upper and lower extremities. Normal speech. Toes are down- going bilaterally. Gait is normal without ataxia. PSYCHIATRIC: Cooperative. Good eye contact. Appropriate mood and affect. <Amara Michelle - Last Filed: 01/27/18 04:25> - Vital Signs Last Vital Signs Temp Pulse Resp BP Pulse Ox 97.9 F 75 16 154/100 97 01/27/18 00:06 01/27/18 00:06 01/27/18 00:06 01/27/18 00:06 01/27/18 00:06 <Taty Mccartney - Last Filed: 02/01/18 19:41> ED Treatment Course - LABORATORY CBC & Chemistry Diagram: 01/27/18 02:03 01/27/18 02:03 - RADIOLOGY Radiograph Interpretation: 01/27/18 04:26 EXAM: ABDOMEN \T\ PELVIS CT W/O CONTR FINDINGS: No colitis or diverticulitis. Normal appendix visualized. Small amount of right medial renal scarring with calcification. No urinary tract obstruction. No acute abnormalities of the liver, spleen, pancreas, or adrenal glands. Prior cholecystectomy. No obvious abnormalities of the reproductive organs. Osseous structures are intact. Reported by: Imaging ruby on rails software developer <Amara Michelle - Last Filed: 01/27/18 04:25> - LABORATORY CBC & Chemistry Diagram: 01/27/18 02:03 01/27/18 02:03 <Taty Mccartney - Last Filed: 02/01/18 19:41> Medical Decision Making - Medical Decision Making 01/27/18 02:47 WBC normal; UA has slight blood, but otherwise normal. 01/27/18 03:53 CHemistry is normal. Pt appears more comfortable after morphine. 01/27/18 03:[address] scan at this time 02/01/18 19:40 Pt's diffuse abd pain under control. Pt has a normal CT scan. Pt will follow with her PMD. For now, Strep throat culture is positive. Pt will be treated for strep and asked to follow up with PMD <Taty Mccartney - Last Filed: 02/01/18 19:41> *DC/Admit/Observation/Transfer - Attestations Scribe Attestion: 01/27/18 02:08 Documentation prepared by Amara Michelle, acting as medical insurance biller for Taty Mccartney MD <Amara Michelle - Last Filed: 01/27/18 04:25> - Discharge Dispostion Admit: No <Taty Mccartney - Last Filed: 02/01/18 19:41> Diagnosis at time of Disposition: Cough, Strep throat - Discharge Dispostion Disposition: HOME Condition at time of disposition: Stable - Prescriptions Prescriptions: Azithromycin [Zithromax Tri-Mango (3 DAYS) -] 500 mg PO DAILY #3 tablet Sulfamethoxazole/Trimethoprim [Bactrim Ds -] 1 tab PO BID #14 tablet - Patient Instructions Printed Discharge Instructions: DI for Strep Throat - Post Discharge Activity Forms/Work/School Notes: Back to Work
[2018-01-27] MEDS ORDERED: morphine CARPU-JECT 2 MG/1 ML DISP.SYRIN IVPUSH ONE (01:56)
[2018-01-27] MEDS ORDERED: SODIUM CHLORIDE 0.9% 500 ML INFUS.BAG IV ONE (01:56)
[2018-01-27] MEDS ORDERED: ONDANSETRON 4 MG/2 ML VIAL IVPB ONE (02:03)
[2018-01-27] MEDS ORDERED: ONDANSETRON 4 MG/2 ML VIAL ONE (02:10)
[2018-01-27] MEDS ORDERED: morphine SULFATE 4 MG/ML VIAL ONE (02:10)
[2018-01-27 02:11] LABS: BASO % 0.8 % (0-2.0); EOS % 1.7 % (0-4.5); HEMOGLOBIN 12.8 GM/dL (10.7-15.3); LYMPH % 32.4 % (8-40); MCHC 34.5 g/dl (32.0-36.0); MEAN CELL VOLUME 86.9 fl (80-96); MEAN PLT VOLUME 7.7 fl (7.5-11.1); MONO % 9.4 % (3.8-10.2); NEUT % 55.7 % (42.8-82.8); PLATELET COUNT 261 K/MM3 (134-434); RBC 4.26 M/mm3 (3.60-5.2); RDW 14.6 % (11.6-15.6)
[2018-01-27 02:23] LABS: URINE APPEARANCE CLEAR; URINE BILIRUBIN NEGATIVE (<2.0 mg/dL); URINE BLOOD 1+ (NEGATIVE); URINE COLOR STRAW; URINE GLUCOSE (UA) NEGATIVE (NEGATIVE); URINE KETONE NEGATIVE (NEGATIVE); URINE LEUK ESTERASE NEGATIVE (NEGATIVE); URINE NITRITE NEGATIVE (NEGATIVE); URINE PROTEIN NEGATIVE (NEGATIVE); URINE UROBILINOGEN NEGATIVE mg/dL (0.2-1.0)
[2018-01-27 02:50] LABS: URINE MUCUS RARE
[2018-01-27 03:28] LABS: AMYLASE 62 U/L (25-115); ANION GAP 9 (8-16); BILIRUBIN,TOTAL 0.5 mg/dL (0.2-1.0); BLOOD UREA NITROGEN 13 mg/dL (7-18); CALCIUM 9.2 mg/dL (8.5-10.1); CHLORIDE 106 mmol/L (98-107); CO2 26 mmol/L (21-32); CREATININE 0.8 mg/dL (0.55-1.02); GLUCOSE,RANDOM 89 mg/dL (74-106); POTASSIUM 4.1 mmol/L (3.5-5.1); SGOT/AST 17 U/L (15-37); SGPT/ALT 29 U/L (12-78); SODIUM 141 mmol/L (136-145); TOT PROT 7.8 g/dl (6.4-8.2)
[2018-01-27 03:29] LABS: ALK PHOS 103 U/L (45-117)
[2018-01-27 03:32] LABS: LIPASE 214 U/L (73-393)
[2018-01-27 07:11] VITALS: BP 135/85; PULSE 76; TEMP 98.6
--- NOTE | 2018-01-29 16:39 | PDOC ---
Patient Follow-up (Call Back) - Post ED Follow - Up Condition at time of discharge: Stable Disposition at time of original discharge: HOME Reason for Call Back: Abnwl. Microbiology (Patient with positive urine culture for ESBL susceptible to Bactrim prescription sent in to her pharmacy. I have left a message for patient to call back to assess her condition and make her aware the prescription was sent in. Awaiting call back.)
--- NOTE | 2018-01-30 08:21 | PDOC ---
Patient Follow-up (Call Back) - Post ED Follow - Up Condition at time of discharge: Stable Disposition at time of original discharge: HOME Reason for Call Back: Abnwl. Microbiology (spoke with patient. 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 states she will take it and follow up with her primary care doctor.)
== END 2018-01-27 07:17 | disposition home or self-care (01) ==
LOC: JER 00:02
PROC: 3E033GC Introduction of Other Therapeutic Substance into Peripheral Vein, Percutaneous Approach (ICD-10-PCS; principal; 2018-01-27)
PROC: 3E033NZ Introduction of Analgesics, Hypnotics, Sedatives into Peripheral Vein, Percutaneous Approach (ICD-10-PCS; 2018-01-27)
DX: N39.0 Urinary tract infection, site not specified (principal); B96.89 Other specified bacterial agents as the cause of diseases classified elsewhere; Z87.442 Personal history of urinary calculi; K21.9 Gastro-esophageal reflux disease without esophagitis; B96.20 Unspecified Escherichia coli [E. coli] as the cause of diseases classified elsewhere
CPT/HCPCS: 36415; 74176-TC; 80053; 81003; 81015; 82150; 83690; 84703; 85025; 87086; 87186; 99282-25

== ENCOUNTER 2018-02-21 18:41 | Emergency (ER) | payer OTHER ==
[2018-02-21 18:48] VITALS: BP 154/99; PULSE 77; TEMP 98.4; BMI 27.3
--- NOTE | 2018-02-21 18:49 | PDOC ---
Rapid Medical Evaluation Time Seen by Provider: 02/21/18 18:44 Medical Evaluation: Allergies Allergy/AdvReac Type Severity Reaction Status Date / Time No Known Drug Allergies Allergy Verified 01/27/18 00:05 peanut Allergy Verified 01/27/18 00:05 02/21/18 18:44 I have performed a brief in-person evaluation of the patient. The patient presents with a chief complaints of left ear pain x 2 days and pain in right cheek. Also complaining of chronic joint pain Pertinent physical exam findings: NAD unlabored breathing left inner cheek with swelling and redness left tragal inflammation I have ordered the following: none The patient will proceed to the ED for further evaluation.
--- NOTE | 2018-02-21 19:25 | PDOC ---
History of Present Illness - General Chief Complaint: Ear Problem Stated Complaint: PAIN Time Seen by Provider: 02/21/18 18:44 - History of Present Illness Initial Comments: 02/21/18 19:23 CHIEF COMPLAINT: left cheek swelling HISTORY OF PRESENT ILLNESS: 47 yo F with no significant PMH presents to [facility] with pain and swelling to left cheek x 4 days. Patient denies any fever, chills, nausea, vomiting, or diarrhea. Patient reports the pain has worsened and she now has difficulty eating due to the pain. No recent travel or sick contacts. PAST MEDICAL HISTORY: Denies past medical history FAMILY HISTORY: Denies SOCIAL HISTORY: Denies tobacco, alcohol, illicit drug use. SURGICAL HISTORY: Denies ALLERGIES: No known drug allergies REVIEW OF SYSTEMS General/Constitutional: Denies fever or chills. HEENT: Pain to left cheek. Denies change in vision. Denies ear pain or discharge. Denies sore throat. Cardiovascular: Denies chest pain or shortness of breath. Respiratory: Denies cough, wheezing, or hemoptysis. Gastrointestinal: Denies nausea, vomiting, diarrhea. Genitourinary: Denies dysuria, frequency, or change in urination. Musculoskeletal: Denies joint or muscle swelling or pain. Denies neck or back pain. Skin and breasts: Denies rash or easy bruising. PHYSICAL EXAM General Appearance: Well-appearing, appropriately dressed. No apparent distress. HEENT: Small papule to buccal mucosa of left cheek with surrounding erythema and swelling. EOMI, PERRLA. No conjunctival pallor. No photophobia, scleral icterus. Neck: Supple. Trachea midline. No tenderness, rigidity, carotid bruit, stridor , lymphadenopathy, or thyromegaly. Respiratory/Chest: Lungs CTAB. No shortness of breath, chest tenderness, respiratory distress, accessory muscle use. No crackles, rales, rhonchi, stridor , wheezing, dullness Cardiovascular: RRR. S1, S2. No JVD, murmur, bradycardia, tachycardia. Vascular Pulses: Dorsalis-Pedis (R): 2+, Dorsalis-Pedis (L): 2+ Gastrointestinal/Abdominal: Normal bowel sounds. Abdomen soft, non-distended. No tenderness or rebound tenderness. No organomegaly, pulsatile mass, guarding , hernia, hepatomegaly, splenomegaly. Lymphatic: No adenopathy, tenderness. Musculoskeletal/Extremities: Normal inspection. FROM of all extremities, normal capillary refill. Pelvis Stable. No CVA tenderness. No tenderness to extremities, pedal edema, swelling, erythema or deformity. Integumentary: Appropriate color, dry, warm. No cyanosis, erythema, jaundice or rash Neurologic: diesel locomotive firer II-XII intact. Fully oriented, alert. Appropriate mood/affect. Motor strength 5/5. No appreciable EOM palsy, facial droop or sensory deficit. 02/21/18 19:30 Past History - Past Medical History Allergies/Adverse Reactions: Allergies Allergy/AdvReac Type Severity Reaction Status Date / Time No Known Drug Allergies Allergy Verified 02/21/18 18:44 peanut Allergy Verified 02/21/18 18:44 Home Medications: Ambulatory Orders Naproxen [Naprosyn -] 500 mg PO BID PRN #14 tablet 03/19/17 Methocarbamol [Robaxin -] 750 mg PO Q8H PRN #21 tablet 07/11/17 Meclizine HCl [Antivert -] 25 mg PO TID #21 tablet 10/16/17 Azithromycin [Zithromax Tri-Manog (3 DAYS) -] 500 mg PO DAILY #3 tablet 01/27/18 Clindamycin [Cleocin -] 300 mg PO Q6HPO #40 capsule 02/21/18 Ibuprofen [Motrin -] 600 mg PO TID PRN #21 tablet 02/21/18 Anemia: No Asthma: No Cancer: No Cardiac Disorders: No CVA: No COPD: No CHF: No Dementia: No Diabetes: No GI Disorders: Yes (GERD) Disorders: Yes (RENAL CALCULI) HTN: No Hypercholesterolemia: No Kidney Stones: Yes Liver Disease: No Seizures: No Thyroid Disease: Yes - Surgical History Abdominal Surgery: No Appendectomy: No Cardiac Surgery: No Cholecystectomy: Yes (2010) Lung Surgery: No Neurologic Surgery: No Orthopedic Surgery: No - Reproductive History (#): 3 Para: 2 - Immunization History Immunization Up to Date: Yes - Suicide/Smoking/Psychosocial Hx Smoking History: Never smoked Have you smoked in the past 12 months: No Hx Alcohol Use: No Drug/Substance Use Hx: No Substance Use Type: None Hx Substance Use Treatment: No *Physical Exam - Vital Signs Last Vital Signs Temp Pulse Resp BP Pulse Ox 98.4 F 77 18 154/99 100 02/21/18 18:44 02/21/18 18:44 02/21/18 18:44 02/21/18 18:44 02/21/18 18:44 *DC/Admit/Observation/Transfer Diagnosis at time of Disposition: Abscess of internal cheek, left - Discharge Dispostion Disposition: HOME Condition at time of disposition: Stable Admit: No - Prescriptions Prescriptions: Clindamycin [Cleocin -] 300 mg PO Q6HPO #40 capsule Ibuprofen [Motrin -] 600 mg PO TID PRN #21 tablet PRN Reason: Pain - Referrals Referrals: Max Joseph MD [Non Staff, Medical] - Phyllis Mix MD [Non Staff, Medical] - Adam Page MD [Non Staff, Medical] - - Patient Instructions Additional Instructions: Please take medications as prescribed; you MUST complete the ENTIRE course of antibiotics even if your symptoms improve. Follow up with the dentist ( referrals provided) next week. If you develop fever, chills, vomiting, diarrhea, or you have difficulty breathing due to swelling in your mouth, tongue, neck, lips, throat, or neck, please return to the ER IMMEDIATELY. Por favor tome los medicamentos segn lo recetado; DEBE completar TODO el curso de antibiticos, incluso si isaac sntomas mejoran. Jose un seguimiento con el dentista (referencias provistas) la prxima semana. Si desarrolla fiebre, escalofros, vmitos, diarrea, o tiene dificultad para respirar debido a la hinchazn en la boca, lengua, marlene, labios, garganta o marlene, por favor regrese a la sabiha de emergencias de manera INMEDIATA. - Post Discharge Activity
--- NOTE | 2018-02-21 19:30 | PDOC ---
History of Present Illness - General Chief Complaint: Ear Problem Stated Complaint: PAIN Time Seen by Provider: 02/21/18 18:44 - History of Present Illness Initial Comments: 02/21/18 19:29 CHIEF COMPLAINT: HISTORY OF PRESENT ILLNESS: No recent travel or sick contacts. PAST MEDICAL HISTORY: Denies past medical history FAMILY HISTORY: Denies SOCIAL HISTORY: Lives at home with ____. Occupation: . Denies tobacco, alcohol, illicit drug use. SURGICAL HISTORY: Denies ALLERGIES: No known drug allergies REVIEW OF SYSTEMS General/Constitutional: Denies fever or chills. Denies weakness, weight change. HEENT: Denies change in vision. Denies ear pain or discharge. Denies sore throat. Cardiovascular: Denies chest pain or shortness of breath. Respiratory: Denies cough, wheezing, or hemoptysis. Gastrointestinal: Denies nausea, vomiting, diarrhea or constipation. Denies rectal bleeding. Genitourinary: Denies dysuria, frequency, or change in urination. Musculoskeletal: Denies joint or muscle swelling or pain. Denies neck or back pain. Skin and breasts: Denies rash or easy bruising. Neurologic: Denies headache, vertigo, loss of consciousness, or loss of sensation. Psychiatric: Denies depression or anxiety. Endocrine: Denies increased thirst. Denies abnormal weight change. Hematologic/Lymphatic: Denies anemia, easy bleeding, or history of blood clots. Allergic/Immunologic: Denies hives or skin allergy. Denies latex allergy. PHYSICAL EXAM General Appearance: Well-appearing, appropriately dressed. No apparent distress , no intoxication. HEENT: EOMI, PERRLA, normal ENT inspection, normal voice, TMs normal, pharynx normal. No conjunctival pallor. No photophobia, scleral icterus. Neck: Supple. Trachea midline. No tenderness, rigidity, carotid bruit, stridor , lymphadenopathy, or thyromegaly. Respiratory/Chest: Lungs CTAB. No shortness of breath, chest tenderness, respiratory distress, accessory muscle use. No crackles, rales, rhonchi, stridor , wheezing, dullness Cardiovascular: RRR. S1, S2. No JVD, murmur, bradycardia, tachycardia. Vascular Pulses: Dorsalis-Pedis (R): 2+, Dorsalis-Pedis (L): 2+ Gastrointestinal/Abdominal: Normal bowel sounds. Abdomen soft, non-distended. No tenderness or rebound tenderness. No organomegaly, pulsatile mass, guarding , hernia, hepatomegaly, splenomegaly. Lymphatic: No adenopathy, tenderness. Musculoskeletal/Extremities: Normal inspection. FROM of all extremities, normal capillary refill. Pelvis Stable. No CVA tenderness. No tenderness to extremities, pedal edema, swelling, erythema or deformity. Integumentary: Appropriate color, dry, warm. No cyanosis, erythema, jaundice or rash Neurologic: office manager II-XII intact. Fully oriented, alert. Appropriate mood/affect. Motor strength 5/5. No appreciable EOM palsy, facial droop or sensory deficit. Past History - Past Medical History Allergies/Adverse Reactions: Allergies Allergy/AdvReac Type Severity Reaction Status Date / Time No Known Drug Allergies Allergy Verified 02/21/18 18:44 peanut Allergy Verified 02/21/18 18:44 Home Medications: Ambulatory Orders Naproxen [Naprosyn -] 500 mg PO BID PRN #14 tablet 03/19/17 Methocarbamol [Robaxin -] 750 mg PO Q8H PRN #21 tablet 07/11/17 Meclizine HCl [Antivert -] 25 mg PO TID #21 tablet 10/16/17 Azithromycin [Zithromax Tri-Mango (3 DAYS) -] 500 mg PO DAILY #3 tablet 01/27/18 Anemia: No Asthma: No Cancer: No Cardiac Disorders: No CVA: No COPD: No CHF: No Dementia: No Diabetes: No GI Disorders: Yes (GERD) Disorders: Yes (RENAL CALCULI) HTN: No Hypercholesterolemia: No Kidney Stones: Yes Liver Disease: No Seizures: No Thyroid Disease: Yes - Surgical History Abdominal Surgery: No Appendectomy: No Cardiac Surgery: No Cholecystectomy: Yes (2010) Lung Surgery: No Neurologic Surgery: No Orthopedic Surgery: No - Reproductive History (#): 3 Para: 2 - Immunization History Immunization Up to Date: Yes - Suicide/Smoking/Psychosocial Hx Smoking History: Never smoked Have you smoked in the past 12 months: No Hx Alcohol Use: No Drug/Substance Use Hx: No Substance Use Type: None Hx Substance Use Treatment: No *Physical Exam - Vital Signs Last Vital Signs Temp Pulse Resp BP Pulse Ox 98.4 F 77 18 154/99 100 02/21/18 18:44 02/21/18 18:44 02/21/18 18:44 02/21/18 18:44 02/21/18 18:44
[2018-02-21] MEDS ORDERED: IBUPROFEN 400 MG TABLET (FP) PO ONE ×2 (19:37→19:42)
== END 2018-02-21 19:47 | disposition home or self-care (01) ==
LOC: JER 18:41
DX: K12.2 Cellulitis and abscess of mouth (principal)
CPT/HCPCS: 99281-25

== ENCOUNTER → 2018-03-25 | Day surgery (SDC) | payer OTHER ==
--- NOTE | 2018-03-26 17:37 | PATH ---
Surgical Pathology Report Patient Name: LATRICE GALDAMEZ [facility]. Rec. #: [id number] /Age/Gender: 1970 (Age: 47) / F Account: [id number] Location: [facility]OLOGY [facility] Taken: 03/25/2018 Received: 03/25/2018 Reported: 03/26/2018 Physicians: Mary Wright Marlondudley Specimen(s) Received 1.5CM 11-12:00 LEFT BREAST CORE BIOPSY Clinical History Nonpalpable lesion Postoperative diagnosis: Suspicious Final Diagnosis BREAST, LEFT, 11-12:00, ULTRASOUND GUIDED CORE BIOPSY: INVASIVE DUCTAL CARCINOMA, MODERATELY DIFFERENTIATED, MEASURING AT LEAST 1.1 CM IN THIS MATERIAL. Comment: Immunohistochemical stain performed and interpreted at [facility] show the tumor is positive for E-Cadherin, supporting ductal phenotype. Breast prognostic markers are pending and will be reported separately. Electronically Signed Yessy Adams M.D. Addendum Reported: 03/28/2018 Addendum Diagnosis Results of Estrogen Receptor (ER) and Progesterone Receptor (CA) studies performed on block "1" at [facility] are as follows: ER (clone [id number] mouse monoclonal antibody by [employer]): ~5% nuclear staining with weak intensity (Positive). CA (clone16 mouse monoclonal antibody by [employer]): ~30% nuclear staining with weak to moderate intensity (Positive). Results of Her2 (IHC) & Ki-67 studies performed on block "1 " at [place], [place] ([id number]) are as follows: Her2 IHC (EP3 from [employer], formerly known as [id number], using [employer] Polymer Refine detection kit): 2+ (Equivocal) Ki-67: ~5% (Low proliferative index) Comment: Findings discussed with Dr. Kapoor. HER2 by FISH pending and will be signed out separately. Positive and negative controls (internal if applicable) show appropriate results. Formalin fixation and cold ischemic times are within current ASCO/CAP recommendations for ER, CA and Her2 testing. Yessy Adams M.D. Gross Description Received in formalin labeled "left 11:00," are 3 monzon-yellow, cylindrical portions of fibroadipose tissue averaging 1.4 cm in length and averaging 0.1 cm in diameter. The specimens are submitted in toto in one cassette. Total formalin fixation time: Between 6-10 hours 03/25/201803/25/2018
== END | disposition home or self-care (01) ==
LOC: JRADUS-SUR 08:50
PROVIDERS: ATTEND Physician Assistant
PROC: 0HBU3ZX Excision of Left Breast, Percutaneous Approach, Diagnostic (ICD-10-PCS; principal; 2018-03-25)
DX: C50.912 Malignant neoplasm of unspecified site of left female breast (principal)
CPT/HCPCS: 19083; 87899; 88305-TC; 88342-TC; A4648

== ENCOUNTER 2019-07-15 09:38 | Day surgery (SDC) | payer OTHER ==
[2019-07-15] MEDS ORDERED: PROPOFOL 20 ML ONE ×2 (10:28)
[2019-07-15 11:13] VITALS: TEMP 97.6
[2019-07-15 11:35] VITALS: BP 126/78; PULSE 71
--- NOTE | 2019-08-04 11:38 | PATH ---
Surgical Pathology Report Patient Name: LATRICE GALDAMEZ [facility]. Rec. #: [id number] /Age/Gender: 1970 (Age: 49) / F Account: [id number] Location: [facility] Taken: 07/15/2019 Received: 07/15/2019 Reported: 08/04/2019 Physicians: Yessy Burnette M.D. Specimen(s) Received A: SECOND PORTION DUODENUM B: ANTRUM C: BX GE JUNCTION Clinical History Abdominal pain Postoperative diagnosis: Erosive gastritis, small hiatal hernia Final Diagnosis A. SECOND PORTION DUODENUM, BIOPSY: DUODENAL MUCOSA WITH NO PATHOLOGIC FINDINGS. B. GASTRIC, ANTRUM, BIOPSY: MILD CHRONIC GASTRITIS. IMMUNOSTAIN IS NEGATIVE FOR H. PYLORI ORGANISMS. C. GE JUNCTION, BIOPSY: ESOPHAGO-GASTRIC JUNCTIONAL (SQUAMOCOLUMNAR) MUCOSA SHOWING MILD CHRONIC INFLAMMATION. NEGATIVE FOR INTESTINAL METAPLASIA. Electronically Signed Porsha Alvarez M.D. Gross Description A. Received in formalin, labeled "second portion duodenum" is a monzon, irregular portion of soft tissue measuring 0.3 cm. in greatest dimension. The specimen is submitted in toto in one cassette. B. Received in formalin, labeled "gastric antrum" is a monzon, irregular portion of soft tissue measuring 0.3 cm. in greatest dimension. The specimen is submitted in toto in one cassette. C. Received in formalin, labeled "GE junction" is a monzon, irregular portion of soft tissue measuring 0.2 cm. in greatest dimension. The specimen is submitted in toto in one cassette. AE/08/03/2019 ebram/08/03/2019
== END 2019-07-15 11:40 | disposition home or self-care (01) ==
LOC: FASU-ENDO 09:38
PROVIDERS: ATTEND Internal Medicine Gastroenterology
PROC: 0DB68ZX Excision of Stomach, Via Natural or Artificial Opening Endoscopic, Diagnostic (ICD-10-PCS; 2019-07-15)
PROC: 0DB48ZX Excision of Esophagogastric Junction, Via Natural or Artificial Opening Endoscopic, Diagnostic (ICD-10-PCS; 2019-07-15)
PROC: 0DB98ZX Excision of Duodenum, Via Natural or Artificial Opening Endoscopic, Diagnostic (ICD-10-PCS; principal; 2019-07-15 10:46)
DX: K29.50 Unspecified chronic gastritis without bleeding (principal); K20.9 Esophagitis, unspecified; R10.9 Unspecified abdominal pain; K44.9 Diaphragmatic hernia without obstruction or gangrene
CPT/HCPCS: 84703; 88305-TC; 88342-TC

== ENCOUNTER 2020-07-14 15:34 | Emergency (ER) | payer OTHER ==
[2020-07-14 15:45] VITALS: BMI 28.6
[2020-07-14] MEDS ORDERED: METOCLOPRAMIDE HCL INJECTION 10 MG/2 ML VIAL IVPUSH ONE (16:19)
[2020-07-14] MEDS ORDERED: ACETAMINOPHEN 1000 MG/100 ML VIAL (NON FORMULARY) IVPB ONE (16:20)
[2020-07-14] MEDS ORDERED: SODIUM CHLORIDE 0.9% 500 ML INFUS.BAG IV ONE (16:20)
--- NOTE | 2020-07-14 16:25 | PDOC ---
History of Present Illness - General Chief Complaint: Headache Stated Complaint: DIZZY.NAUSEA,VOMITING Time Seen by Provider: 07/14/20 16:07 History Source: Patient Exam Limitations: No Limitations - History of Present Illness Initial Comments: 07/14/20 16:21 50-year-old female Hebrew-speaking history of hypertension, breast cancer currently on tamoxifen presents complaining of intermittent headache, nausea, intermittent changes in vision status post head injury June 23, 2020. Patient states she was cleaning a refrigerator when she stood up and struck the top of her head against the freezer door. Denies LOC, vomiting, back pain, weakness or any other symptoms. Patient has taken acetaminophen with minimal relief of symptoms. Denies taking any medication today. ROS: as above PE: GENERAL: well-appearing, NAD HEAD: NCAT EYES: Pupils equal, round and reactive to light, sclera anicteric, conjunctiva clear, EOMI ENT: Normal bilateral ear canals, normal bilateral TMs, pharynx: no erythema, no exudate, uvula midline NECK: supple CHEST: nontender RESP: clear, no w/r/r CARDIO: rrr, no m/g/r ABD: +BS, soft, nontender, non distended BACK: no midline spinal ttp, no CVAT EXTREMITIES: Normal range of motion, no edema NEUROLOGICAL: Normal speech, normal gait, 5/5 strength and sensation SKIN: Warm, Dry 07/14/20 18:46 Is this a multiple visit Asthma Patient?: No Past History - Medical History Allergies/Adverse Reactions: Allergies Allergy/AdvReac Type Severity Reaction Status Date / Time No Known Drug Allergies Allergy Verified 07/14/20 15:37 peanut Allergy Verified 07/14/20 15:37 Home Medications: Ambulatory Orders Naproxen [Naprosyn -] 500 mg PO BID PRN #14 tablet 03/19/17 Amlodipine Besylate [Norvasc -] 5 mg PO DAILY 06/17/19 Buspirone HCl [Buspar -] 10 mg PO ASDIR PRN 06/17/19 Butalb/Acetaminophen/Caffeine [Iyddcf-Djovshcd-Qwpu 50-325-40] 1 each PO DAILY PRN 06/17/19 Cholecalciferol (Vitamin D3) [Vitamin D3] 5,000 unit PO WEEKLY 06/17/19 Oxybutynin Chloride [Ditropan Xl] 10 mg PO HS 06/17/19 Pantoprazole Sodium 40 mg PO DAILY 06/17/19 Tamoxifen Citrate 20 mg PO DAILY 06/17/19 Anemia: No Asthma: No Cancer: No Cardiac Disorders: No CVA: No COPD: No CHF: No Dementia: No Diabetes: No GI Disorders: Yes (GERD) Disorders: Yes (RENAL CALCULI) HTN: No Hypercholesterolemia: No Kidney Stones: Yes Liver Disease: No Seizures: No Thyroid Disease: Yes - Surgical History Abdominal Surgery: No Appendectomy: No Cardiac Surgery: No Cholecystectomy: Yes (2010) Lung Surgery: No Neurologic Surgery: No Orthopedic Surgery: No - Reproductive History Is Patient Now?: No (#): 3 Para: 2 - Immunization History Immunization Up to Date: Yes - Psycho-Social/Smoking History Smoking History: Never smoked Have you smoked in the past 12 months: No - Substance Abuse Hx (Audit-C & DAST Scrn) How often the patient has a drink containing alcohol: Never Score: In Men: 4 or > Positive; In Women: 3 or > Positive: 0 Screen Result (Pos requires Nsg. Audit-10AR): Negative In the last yr the pt used illegal drug/Rx for NonMed reason: No Score: Yes response is considered Positive: 0 Screen Result (Positive result requires Nsg. DAST-10): Negative *Physical Exam - Vital Signs Last Vital Signs Temp Pulse Resp BP Pulse Ox 98.4 F 73 18 137/85 100 07/14/20 15:37 07/14/20 15:37 07/14/20 15:37 07/14/20 15:37 07/14/20 15:37 ED Treatment Course - RADIOLOGY Radiology Studies Ordered: Category Date Time Status HEAD CT WITHOUT CONTRAST [CT] Stat CT Scan 07/14/20 16:20 Ordered Medical Decision Making - Medical Decision Making 07/14/20 16:23 50-year-old female Hebrew-speaking history of hypertension, breast cancer cu rrently on tamoxifen presents complaining of intermittent headache, nausea, intermittent changes in vision status post head injury June 23, 2020. Patient states she was cleaning a refrigerator when she stood up and struck the top of her head against the freezer door. Denies LOC, vomiting, back pain, weakness or any other symptoms. Patient has taken acetaminophen with minimal relief of symptoms. Denies taking any medication today. Denies taking anticoagulants Head CT without contrast IV fluids Reglan IV IV Tylenol Reassess 07/14/20 18:[address] neg, discussed results with patient has pmd appt scheduled for 07/28/20 strict return precautions discussed Discharge - Discharge Information Problems reviewed: Yes Clinical Impression/Diagnosis: Headache Qualifiers: Headache type: unspecified Headache chronicity pattern: unspecified pattern Intractability: not intractable Qualified Code(s): R51 - Headache Condition: Stable Disposition: HOME - Admission No - Follow up/Referral Referrals: Shahid Thomson PA [Primary Care Provider] - - Patient Discharge Instructions Additional Instructions: Alternate between acetaminophen and ibuprofen every 6 hours as needed - Post Discharge Activity
[2020-07-14] MEDS ORDERED: METOCLOPRAMIDE HCL INJECTION 10 MG/2 ML VIAL ONE (16:41)
[2020-07-14] MEDS ORDERED: ACETAMINOPHEN INJECTION 100 ML IVPB ONE (16:42)
[2020-07-14 19:10] VITALS: BP 123/78; PULSE 89; TEMP 98.5
== END 2020-07-14 19:10 | disposition home or self-care (01) ==
LOC: JER 15:34
PROC: 3E0333Z Introduction of Anti-inflammatory into Peripheral Vein, Percutaneous Approach (ICD-10-PCS; principal; 2020-07-14)
PROC: 3E033GC Introduction of Other Therapeutic Substance into Peripheral Vein, Percutaneous Approach (ICD-10-PCS; 2020-07-14)
DX: R51 Headache (principal)
CPT/HCPCS: 70450-TC; 99284-25; J0131

== ENCOUNTER 2020-09-07 09:28 | Day surgery (SDC) | payer OTHER ==
[2020-09-07 10:17] VITALS: BMI 28.1
[2020-09-07] MEDS ORDERED: PROPOFOL 20 ML ONE ×3 (10:24)
[2020-09-07] MEDS ORDERED: LIDOCAINE HCL/PF 2% SDV 5ML VIAL ONE (10:24)
[2020-09-07 11:33] VITALS: BP 114/68; PULSE 83; TEMP 98.4
== END 2020-09-07 11:33 | disposition home or self-care (01) ==
LOC: FASU-ENDO 09:28
PROVIDERS: ATTEND Internal Medicine Gastroenterology
PROC: 0DJD8ZZ Inspection of Lower Intestinal Tract, Via Natural or Artificial Opening Endoscopic (ICD-10-PCS; principal; 2020-09-07 10:44)
DX: Z12.11 Encounter for screening for malignant neoplasm of colon (principal); K64.1 Second degree hemorrhoids
CPT/HCPCS: 84703

== ENCOUNTER 2021-05-16 18:45 | Emergency (ER) | payer OTHER ==
[2021-05-16 18:52] VITALS: TEMP 98.8; BMI 29.2
[2021-05-16] MEDS ORDERED: ACETAMINOPHEN 1000 MG/100 ML VIAL (NON FORMULARY) IVPB ONE (21:19)
[2021-05-16] MEDS ORDERED: ACETAMINOPHEN INJECTION 100 ML IVPB ONE (21:26)
[2021-05-16 21:55] LABS: BASO % 1.1 % (0-2.0); EOS % 1.8 % (0-4.5); HEMOGLOBIN 12.9 GM/dL (10.7-15.3); LYMPH % 30.3 % (8-40); MEAN CELL VOLUME 88.5 fl (80-96); MEAN PLT VOLUME 7.5 fl (7.5-11.1); MONO % 10.4 % (3.8-10.2); NEUT % 56.4 % (42.8-82.8); PLATELET COUNT 270 10^3/uL (134-434); RBC 4.29 M/mm3 (3.60-5.2); WHITE BLOOD COUNT 7.4 K/mm3 (4.0-10.0)
[2021-05-16 22:18] LABS: CHLORIDE 109 mmol/L (98-107); SODIUM 141 mmol/L (136-145)
[2021-05-16 22:19] LABS: CALCIUM 8.9 mg/dL (8.5-10.1)
[2021-05-16 22:20] LABS: ALBUMIN 3.7 g/dl (3.4-5.0); ANION GAP 5 MMOL/L (8-16); BLOOD UREA NITROGEN 10.1 mg/dL (7-18); CO2 27 mmol/L (21-32); GLUCOSE,RANDOM 97 mg/dL (74-106)
[2021-05-16 22:23] LABS: CREATININE 0.8 mg/dL (0.55-1.3); SGOT/AST 29 U/L (15-37); SGPT/ALT 42 U/L (13-61)
[2021-05-16 22:25] LABS: TOT PROT 7.8 g/dl (6.4-8.2)
[2021-05-16 22:26] LABS: ALK PHOS 98 U/L (45-117)
[2021-05-16 22:29] LABS: BILIRUBIN,TOTAL 0.4 mg/dL (0.2-1)
[2021-05-16 23:05] LABS: EPI CELLS 26 /uL (0-25.1); HYALINE CASTS 0 /uL (0-3.1); URINE APPEARANCE CLEAR; URINE BACTERIA 217 /uL (0-1359); URINE BILIRUBIN NEGATIVE (NEGATIVE); URINE COLOR YELLOW; URINE GLUCOSE (UA) NEGATIVE (NEGATIVE); URINE KETONE NEGATIVE (NEGATIVE); URINE LEUK ESTERASE TRACE (NEGATIVE); URINE NITRITE NEGATIVE (NEGATIVE); URINE PROTEIN NEGATIVE (NEGATIVE); URINE RBC 18 /uL (0-23.9); URINE UROBILINOGEN 0.2 mg/dL (0.2-1.0); URINE WBC 31 /uL (0-25.8)
[2021-05-17] MEDS ORDERED: LIDOCAINE 5% TOPICAL PATCH TP ONE (01:03)
[2021-05-17] MEDS ORDERED: KETOROLAC TROMETHAMINE 15 MG/ML VIAL IVPUSH ONE (01:03)
[2021-05-17] MEDS ORDERED: LIDOCAINE 5% TOPICAL PATCH ONE (01:21)
[2021-05-17] MEDS ORDERED: KETOROLAC TROMETHAMINE 15 MG/ML VIAL ONE (01:22)
[2021-05-17 01:36] VITALS: BP 126/78; PULSE 87
[2021-05-17] MEDS ORDERED: LIDOCAINE PATCH REMOVAL MC SCH (22:00)
== END 2021-05-17 01:36 | disposition home or self-care (01) ==
LOC: JER 18:45
PROC: 3E0333Z Introduction of Anti-inflammatory into Peripheral Vein, Percutaneous Approach (ICD-10-PCS; principal; 2021-05-16)
PROC: 3E0333Z Introduction of Anti-inflammatory into Peripheral Vein, Percutaneous Approach (ICD-10-PCS; 2021-05-16)
DX: M54.6 Pain in thoracic spine (principal)
CPT/HCPCS: 36415; 71046-TC-FY; 71275-TC; 74177-TC; 80053; 81003; 82550; 84484; 85025; 85379; 93005; 93010; 99285-25; J0131

== ENCOUNTER 2021-08-10 04:45 | Day surgery (SDC) | payer OTHER ==
[2021-08-09 13:12] VITALS: BMI 28.8
[2021-08-10] MEDS ORDERED: ceFAZolin SODIUM 1 GM VIAL ONE ×2 (06:55→17:04)
[2021-08-10] MEDS ORDERED: PHENAZOPYRIDINE HCL 100 MG TABLET (FP) ONE (06:55)
[2021-08-10] MEDS ORDERED: ACETAMINOPHEN 1000 MG/100 ML VIAL IVPB ONE (07:00)
[2021-08-10] MEDS ORDERED: GABAPENTIN 300 MG CAPSULE PO ONE (07:00)
[2021-08-10] MEDS ORDERED: PHENAZOPYRIDINE HCL 100 MG TABLET (FP) PO ONE (07:00)
[2021-08-10] MEDS ORDERED: CEFAZOLIN 2 GM in DEXTROSE 5%-WATER - 100 ML IVPB ONE (07:00)
[2021-08-10] MEDS ORDERED: BUPIVACAINE LIPOSOME/PF (EXPAREL) 266 MG/20 ML VIAL ONE (07:27)
[2021-08-10] MEDS ORDERED: BUPIVACAINE HCL/PF 0.5% (5MG/ML) 10 ML VIAL ONE (07:27)
[2021-08-10] MEDS ORDERED: MIDAZOLAM HCL 2 MG/2 ML SINGLE DOSE VIAL ONE ×2 (07:28)
[2021-08-10] MEDS ORDERED: PROPOFOL 20 ML ONE ×3 (07:32)
[2021-08-10] MEDS ORDERED: SUCCINYLCHOLINE CHLORIDE 200 MG/10 ML SYRINGE ONE (07:32)
[2021-08-10] MEDS ORDERED: ROCURONIUM BROMIDE 50 MG/5 ML SYRINGE ONE (07:32)
[2021-08-10] MEDS ORDERED: fentaNYL CITRATE 250 MCG/5 ML VIAL ONE (07:32)
[2021-08-10] MEDS ORDERED: SCOPOLAMINE HYDROBROMIDE 1 PATCH PATCH.TD72 ONE (07:37)
[2021-08-10] MEDS ORDERED: ceFAZolin SODIUM 1 GM VIAL IVPB ONE (08:10)
[2021-08-10] MEDS ORDERED: DESFLURANE GAS 240 ML BOTTLE IH ONE (09:13)
[2021-08-10] MEDS ORDERED: NEOSTIGMINE METHYLSULFATE 0.5 MG/ML - 10 ML MDV ONE (09:35)
[2021-08-10] MEDS ORDERED: GLYCOPYRROLATE 0.2 MG/1 ML VIAL ONE (09:35)
[2021-08-10] MEDS ORDERED: SIMETHICONE 80 MG TAB.CHEW (FP) PO PRN (09:48)
[2021-08-10] MEDS ORDERED: ONDANSETRON 4 MG/2 ML VIAL IVPUSH PRN (09:48)
[2021-08-10] MEDS ORDERED: DOCUSATE SODIUM 100 MG CAPSULE (FP) PO PRN (09:48)
[2021-08-10] MEDS ORDERED: oxyCODONE HCL 5 MG TABLET PO PRN ×2 (09:48)
[2021-08-10] MEDS ORDERED: BISACODYL 5 MG TABLET.DR (FP) PO PRN (09:48)
[2021-08-10] MEDS ORDERED: ACETAMINOPHEN INJECTION 100 ML IVPB ONE (10:53)
[2021-08-10] MEDS: LACTATED RINGERS SOLUTION 1,000 ML IV SCH (11:00)
[2021-08-10] MEDS: SODIUM CHLORIDE 1,000 ML IV SCH ×2 (12:30→22:47)
[2021-08-10 14:22] LABS: HIV INTERPRETATION NEGATIVE (NEGATIVE)
[2021-08-10] MEDS ORDERED: DEXTROSE 5%-WATER - 50 ML IVPB ONE (17:05)
[2021-08-10] MEDS: CEFAZOLIN 1 GM in DEXTROSE 5%-WATER - 1 GM/50 ML IVPB IVPB SCH (17:19)
[2021-08-10] MEDS: ACETAMINOPHEN 500 MG TABLET (FP) PO SCH ×2 (17:20→23:37)
[2021-08-10 20:06] LABS: HEMOGLOBIN 12.1 GM/dL (10.7-15.3); MCH 29.9 pg (25.7-33.7); MCHC 33.7 g/dl (32.0-36.0); MEAN CELL VOLUME 88.7 fl (80-96); MEAN PLT VOLUME 7.7 fl (7.5-11.1); PLATELET COUNT 258 10^3/uL (134-434); RBC 4.06 M/mm3 (3.60-5.2); RDW 13.7 % (11.6-15.6)
[2021-08-10 20:24] LABS: CALCIUM 8.7 mg/dL (8.5-10.1)
[2021-08-10 20:28] LABS: CREATININE 0.6 mg/dL (0.55-1.3)
[2021-08-10] MEDS ORDERED: SOLIFENACIN SUCCINATE 5 MG TAB PO SCH (22:00)
[2021-08-11] MEDS ORDERED: ceFAZolin SODIUM 1 GM VIAL ONE ×2 (02:39→09:36)
[2021-08-11] MEDS ORDERED: DEXTROSE 5%-WATER - 50 ML IVPB ONE ×2 (02:39→09:36)
[2021-08-11] MEDS: CEFAZOLIN 1 GM in DEXTROSE 5%-WATER - 1 GM/50 ML IVPB IVPB SCH ×2 (02:46→09:39)
[2021-08-11] MEDS: ACETAMINOPHEN 500 MG TABLET (FP) PO SCH ×2 (05:51→11:18)
[2021-08-11 08:24] LABS: HEMATOCRIT 34.1 % (32.4-45.2); HEMOGLOBIN 11.5 GM/dL (10.7-15.3); MCH 29.9 pg (25.7-33.7); MCHC 33.7 g/dl (32.0-36.0); MEAN CELL VOLUME 88.6 fl (80-96); MEAN PLT VOLUME 7.4 fl (7.5-11.1); PLATELET COUNT 258 10^3/uL (134-434); RBC 3.85 M/mm3 (3.60-5.2); RDW 13.1 % (11.6-15.6); WHITE BLOOD COUNT 12.1 K/mm3 (4.0-10.0)
[2021-08-11 09:01] LABS: BLOOD UREA NITROGEN 6.4 mg/dL (7-18)
[2021-08-11 09:03] LABS: CALCIUM 8.8 mg/dL (8.5-10.1)
[2021-08-11 09:04] LABS: CREATININE 0.7 mg/dL (0.55-1.3)
[2021-08-11] MEDS ORDERED: PT OWN MED DRAWER 7, Y5N ONE (09:36)
[2021-08-11] MEDS: SODIUM CHLORIDE 1,000 ML IV SCH (09:40)
[2021-08-11] MEDS ORDERED: ENOXAPARIN NA (PORCINE) 40 MG/0.4 ML DISP.SYRIN SQ SCH (10:00)
[2021-08-11] MEDS ORDERED: TAMOXIFEN CITRATE 10 MG TABLET PO SCH (10:00)
[2021-08-11] MEDS ORDERED: amLODIPine BESYLATE 5 MG TABLET (FP) PO SCH (10:00)
[2021-08-11] MEDS: LACTATED RINGERS SOLUTION 1,000 ML IV SCH (11:18)
[2021-08-11 12:29] VITALS: BP 133/82; PULSE 67; TEMP 98.8
== END 2021-08-11 13:17 | disposition home or self-care (01) ==
LOC: JASUSAT 04:45 → J8W 12:56 → JASUSAT 08-11 13:16
PROVIDERS: ATTEND Obstetrics & Gynecology
PROC: 8E0W4CZ Robotic Assisted Procedure of Trunk Region, Percutaneous Endoscopic Approach (ICD-10-PCS; 2021-08-10)
PROC: 0UT94ZZ Resection of Uterus, Percutaneous Endoscopic Approach (ICD-10-PCS; principal; 2021-08-10 07:30)
PROC: 0UT74ZZ Resection of Bilateral Fallopian Tubes, Percutaneous Endoscopic Approach (ICD-10-PCS; 2021-08-10 07:30)
DX: D25.2 Subserosal leiomyoma of uterus (principal)
CPT/HCPCS: 36415; 80048; 84460; 84703; 85027; 86803; 86850; 86900; 86901; 87340; 87389; 88302-TC; 88307-TC; 94010; 94760; J0131

== ENCOUNTER 2021-08-11 17:51 | Emergency (ER) | payer OTHER ==
[2021-08-11 18:16] VITALS: BP 133/84; PULSE 78; TEMP 98.5; BMI 28.8
[2021-08-11] MEDS ORDERED: NAPROXEN 500 MG TABLET PO ONE (18:58)
[2021-08-11] MEDS ORDERED: METHOCARBAMOL 500 MG TABLET PO ONE (18:58)
[2021-08-11] MEDS ORDERED: METHOCARBAMOL 500 MG TABLET ONE (19:08)
[2021-08-11] MEDS ORDERED: NAPROXEN 500 MG TABLET ONE (19:08)
== END 2021-08-11 20:25 | disposition home or self-care (01) ==
LOC: JER 17:51
DX: M62.838 Other muscle spasm (principal)
CPT/HCPCS: 71046-TC-FY; 72050-TC-FY; 99284-25

== ENCOUNTER 2021-09-23 01:06 | Emergency (ER) | payer OTHER ==
[2021-09-23 01:39] VITALS: BMI 28.5
[2021-09-23] MEDS ORDERED: ONDANSETRON 4 MG TABLET PO ONE (01:55)
[2021-09-23] MEDS ORDERED: SUCRALFATE 1 GM TABLET (FP) PO ONE (01:56)
[2021-09-23] MEDS ORDERED: SUCRALFATE 1 GM TABLET (FP) ONE (02:11)
[2021-09-23] MEDS ORDERED: ONDANSETRON *ODT* 4 MG TABLET ONE (02:11)
[2021-09-23 02:28] VITALS: TEMP 98.6
[2021-09-23 03:16] VITALS: BP 132/92; PULSE 79
== END 2021-09-23 03:59 | disposition home or self-care (01) ==
LOC: JER 01:06
DX: I10 Essential (primary) hypertension (principal)
CPT/HCPCS: 93005; 93010; 99283-25

== ENCOUNTER 2022-01-31 10:17 | Day surgery (SDC) | payer OTHER ==
[2022-01-29 15:50] VITALS: BMI 31.7
[2022-01-31] MEDS ORDERED: LIDOCAINE HCL/PF 2% SDV 5ML VIAL ONE (10:58)
[2022-01-31] MEDS ORDERED: PROPOFOL 20 ML ONE ×4 (10:58)
[2022-01-31 12:23] VITALS: TEMP 98
[2022-01-31 12:47] VITALS: BP 126/73; PULSE 75
== END 2022-01-31 12:54 | disposition home or self-care (01) ==
LOC: FASU-ENDO 10:17
PROVIDERS: ATTEND Internal Medicine Gastroenterology
PROC: 0DB68ZX Excision of Stomach, Via Natural or Artificial Opening Endoscopic, Diagnostic (ICD-10-PCS; 2022-01-31)
PROC: 0DB48ZX Excision of Esophagogastric Junction, Via Natural or Artificial Opening Endoscopic, Diagnostic (ICD-10-PCS; 2022-01-31)
PROC: 0DB98ZX Excision of Duodenum, Via Natural or Artificial Opening Endoscopic, Diagnostic (ICD-10-PCS; principal; 2022-01-31 11:57)
DX: K29.50 Unspecified chronic gastritis without bleeding (principal); K20.90 Esophagitis, unspecified without bleeding; R10.13 Epigastric pain
CPT/HCPCS: 88305-TC; 88342-TC

== ENCOUNTER 2022-08-28 21:29 | Emergency (ER) | payer OTHER ==
[2022-08-28 21:40] VITALS: BP 134/84; PULSE 103; RESP 18; TEMP 100.4; BMI 33.0
[2022-08-28] MEDS ORDERED: DEXAMETHASONE SOD PHOSPHATE 10 MG/1 ML VIAL PO ONE (22:31)
[2022-08-28] MEDS ORDERED: ACETAMINOPHEN 500 MG TABLET (FP) PO ONE (22:32)
[2022-08-28] MEDS ORDERED: DEXAMETHASONE SOD PHOSPHATE 10 MG/1 ML VIAL ONE (22:32)
[2022-08-28] MEDS ORDERED: ACETAMINOPHEN 500 MG TABLET (FP) ONE (22:33)
== END 2022-08-29 00:01 | disposition home or self-care (01) ==
LOC: JERFT 21:29
DX: J06.9 Acute upper respiratory infection, unspecified (principal)
CPT/HCPCS: 0241U-QW; 99283-25; J1100

== ENCOUNTER 2022-11-17 14:31 | Emergency (ER) | payer OTHER ==
[2022-11-17 14:37] VITALS: BP 137/88; PULSE 90; RESP 18; TEMP 97.8; BMI 28.3
[2022-11-17] MEDS ORDERED: KETOROLAC TROMETHAMINE 30 MG/1 ML VIAL IM ONE (15:14)
[2022-11-17] MEDS ORDERED: CYCLOBENZAPRINE HCL 10 MG TABLET (FP) PO ONE (15:14)
[2022-11-17] MEDS ORDERED: ACETAMINOPHEN 500 MG TABLET (FP) PO ONE (15:14)
[2022-11-17] MEDS ORDERED: LIDOCAINE 5% TOPICAL PATCH TP ONE (15:14)
[2022-11-17] MEDS ORDERED: KETOROLAC TROMETHAMINE 30 MG/1 ML VIAL ONE (15:17)
[2022-11-17] MEDS ORDERED: CYCLOBENZAPRINE HCL 10 MG TABLET (FP) ONE (15:17)
[2022-11-17] MEDS ORDERED: LIDOCAINE 5% TOPICAL PATCH ONE (15:17)
[2022-11-17] MEDS ORDERED: ACETAMINOPHEN 500 MG TABLET (FP) ONE (15:18)
[2022-11-17] MEDS ORDERED: LIDOCAINE PATCH REMOVAL MC SCH (22:00)
== END 2022-11-17 16:33 | disposition home or self-care (01) ==
LOC: JERFT 14:31 → JER 14:31 → JERFT 16:33
PROC: 3E0233Z Introduction of Anti-inflammatory into Muscle, Percutaneous Approach (ICD-10-PCS; principal; 2022-11-17)
DX: M54.42 Lumbago with sciatica, left side (principal)
CPT/HCPCS: 72100-TC-FY; 99284-25

== ENCOUNTER 2022-12-31 08:25 | Emergency (ER) | payer OTHER ==
[2022-12-31 08:32] VITALS: BP 130/88; PULSE 87; RESP 18; TEMP 97.8; BMI 29.8
[2022-12-31] MEDS ORDERED: KETOROLAC TROMETHAMINE 15 MG/ML VIAL IM ONE (09:03)
[2022-12-31] MEDS ORDERED: ACETAMINOPHEN 500 MG TABLET (FP) PO ONE (09:03)
[2022-12-31] MEDS ORDERED: LIDOCAINE 5% TOPICAL PATCH TP ONE (09:03)
[2022-12-31] MEDS ORDERED: KETOROLAC TROMETHAMINE 60 MG/2 ML VIAL IM ONE (09:31)
[2022-12-31] MEDS ORDERED: ACETAMINOPHEN 500 MG TABLET (FP) ONE (09:32)
[2022-12-31] MEDS ORDERED: KETOROLAC TROMETHAMINE 60 MG/2 ML VIAL ONE (09:32)
[2022-12-31] MEDS ORDERED: LIDOCAINE 5% TOPICAL PATCH ONE (09:35)
[2022-12-31] MEDS ORDERED: ALBUTEROL SO4 2.5/IPRATROPIUM 0.5 INH SOL 3 ML VIAL.NEB. NEB ONE (10:48)
[2022-12-31 10:58] LABS: URINE APPEARANCE CLEAR; URINE BILIRUBIN NEGATIVE (NEGATIVE); URINE COLOR YELLOW; URINE GLUCOSE (UA) NEGATIVE (NEGATIVE); URINE KETONE NEGATIVE (NEGATIVE); URINE LEUK ESTERASE NEGATIVE (NEGATIVE); URINE NITRITE NEGATIVE (NEGATIVE); URINE PROTEIN NEGATIVE (NEGATIVE); URINE UROBILINOGEN 0.2 mg/dL (0.2-1.0)
[2022-12-31] MEDS ORDERED: LIDOCAINE PATCH REMOVAL MC ONE (22:00)
== END 2022-12-31 16:34 | disposition home or self-care (01) ==
LOC: JERFT 08:25 → JER 08:25 → JERFT 16:34
PROC: 3E0233Z Introduction of Anti-inflammatory into Muscle, Percutaneous Approach (ICD-10-PCS; principal; 2022-12-31)
DX: M54.50 Low back pain, unspecified (principal)
CPT/HCPCS: 72131-TC; 81003; 87086; 99284-25

== ENCOUNTER 2023-03-13 10:57 | Day surgery (SDC) | payer OTHER ==
[2023-03-12 14:58] VITALS: BMI 31.7
[2023-03-13] MEDS ORDERED: PROPOFOL 60 ML ONE (12:02)
[2023-03-13 13:01] VITALS: RESP 18; TEMP 97.1
[2023-03-13 13:25] VITALS: BP 127/79; PULSE 80
== END 2023-03-13 13:20 | disposition home or self-care (01) ==
LOC: FASU-ENDO 10:57
PROVIDERS: ATTEND Internal Medicine Gastroenterology
PROC: 0DB78ZX Excision of Stomach, Pylorus, Via Natural or Artificial Opening Endoscopic, Diagnostic (ICD-10-PCS; 2023-03-13)
PROC: 0DB48ZX Excision of Esophagogastric Junction, Via Natural or Artificial Opening Endoscopic, Diagnostic (ICD-10-PCS; 2023-03-13)
PROC: 0DB98ZX Excision of Duodenum, Via Natural or Artificial Opening Endoscopic, Diagnostic (ICD-10-PCS; principal; 2023-03-13 12:38)
DX: K29.50 Unspecified chronic gastritis without bleeding (principal)
CPT/HCPCS: 88305-TC; 88342-TC

== ENCOUNTER 2023-10-16 17:45 | Emergency (ER) | payer OTHER ==
[2023-10-16 18:13] VITALS: RESP 18; TEMP 98.3; BMI 32.1
[2023-10-16] MEDS ORDERED: FAMOTIDINE 20 MG/50 ML IVPB 20 MG/50 ML MG IVPB ONE ×2 (22:07→22:24)
[2023-10-16] MEDS ORDERED: ACETAMINOPHEN 1000 MG/100 ML BAG IVPB ONE (22:08)
[2023-10-16] MEDS ORDERED: METOCLOPRAMIDE HCL INJECTION 10 MG/2 ML VIAL IVPB ONE (22:08)
[2023-10-16] MEDS ORDERED: ACETAMINOPHEN INJECTION 100 ML IVPB ONE (22:23)
[2023-10-16] MEDS ORDERED: METOCLOPRAMIDE HCL INJECTION 10 MG/2 ML VIAL ONE (22:24)
[2023-10-16 22:32] LABS: BASO % 0.7 % (0-2.0); EOS % 1.2 % (0-4.5); HEMATOCRIT 39.4 % (32.4-45.2); HEMOGLOBIN 13.2 GM/dL (10.7-15.3); LYMPH % 39.6 % (8-40); MCH 29.4 pg (25.7-33.7); MCHC 33.4 g/dl (32.0-36.0); MEAN PLT VOLUME 7.3 fl (7.5-11.1); MONO % 8.1 % (3.8-10.2); NEUT % 50.4 % (42.8-82.8); PLATELET COUNT 308 10^3/uL (134-434); RBC 4.48 M/mm3 (3.60-5.2)
[2023-10-16 22:38] LABS: EPI CELLS 6 /uL (0-25.1); HYALINE CASTS 0 /uL (0-3.1); URINE APPEARANCE CLEAR; URINE BACTERIA 9 /uL (0-1359); URINE BILIRUBIN NEGATIVE (NEGATIVE); URINE COLOR YELLOW; URINE GLUCOSE (UA) NEGATIVE (NEGATIVE); URINE KETONE NEGATIVE (NEGATIVE); URINE LEUK ESTERASE TRACE (NEGATIVE); URINE NITRITE NEGATIVE (NEGATIVE); URINE PROTEIN NEGATIVE (NEGATIVE); URINE RBC 31 /uL (0-23.9); URINE UROBILINOGEN 0.2 mg/dL (0.2-1.0); URINE WBC 17 /uL (0-25.8)
[2023-10-16 22:39] LABS: INR 1.01 (0.83-1.09); PROTHROMBIN TIME (PATIENT) 11.7 SEC (9.7-13.0)
[2023-10-16 22:53] LABS: POTASSIUM 3.7 mmol/L (3.5-5.1)
[2023-10-16 22:55] LABS: ALBUMIN 3.7 g/dl (3.4-5.0); CALCIUM 9.6 mg/dL (8.5-10.1)
[2023-10-16 22:57] LABS: BLOOD UREA NITROGEN 9.9 mg/dL (7-18)
[2023-10-16 22:58] LABS: CREATININE 0.7 mg/dL (0.55-1.3)
[2023-10-16 23:01] LABS: BILIRUBIN,TOTAL 0.4 mg/dL (0.2-1); TOT PROT 7.6 g/dl (6.4-8.2)
[2023-10-17 01:52] VITALS: BP 126/88; PULSE 84
== END 2023-10-17 02:58 | disposition home or self-care (01) ==
LOC: JER 17:45
PROC: 3E033GC Introduction of Other Therapeutic Substance into Peripheral Vein, Percutaneous Approach (ICD-10-PCS; principal; 2023-10-16)
PROC: 3E033NZ Introduction of Analgesics, Hypnotics, Sedatives into Peripheral Vein, Percutaneous Approach (ICD-10-PCS; 2023-10-16)
PROC: 3E033GC Introduction of Other Therapeutic Substance into Peripheral Vein, Percutaneous Approach (ICD-10-PCS; 2023-10-16)
DX: R51.9 Headache, unspecified (principal); R10.13 Epigastric pain; R14.0 Abdominal distension (gaseous); R11.0 Nausea; R42 Dizziness and giddiness; M54.50 Low back pain, unspecified; K59.00 Constipation, unspecified
CPT/HCPCS: 36415; 74177-TC; 76705-TC; 80053; 81003; 83690; 84484; 85025; 85610; 87077; 87086; 99285-25; Q9967

== ENCOUNTER 2024-02-03 14:27 | Emergency (ER) | payer OTHER ==
[2024-02-03 14:48] VITALS: RESP 18; BMI 33.0
[2024-02-03] MEDS ORDERED: METHOCARBAMOL 500 MG TABLET ONE (15:49)
[2024-02-03] MEDS: METHOCARBAMOL 500 MG TABLET PO ONE (16:14)
[2024-02-03] MEDS ORDERED: KETOROLAC TROMETHAMINE 15 MG/ML VIAL ONE (16:15)
[2024-02-03] MEDS ORDERED: ACETAMINOPHEN INJECTION 100 ML IVPB ONE (16:15)
[2024-02-03] MEDS ORDERED: ONDANSETRON 4 MG/2 ML VIAL ONE (16:15)
[2024-02-03] MEDS ORDERED: LIDOCAINE 4% PATCH TP ONE (16:15)
[2024-02-03 16:21] LABS: BASO % 0.4 % (0-2.0); EOS % 0.1 % (0-4.5); HEMATOCRIT 37.3 % (32.4-45.2); HEMOGLOBIN 12.7 GM/dL (10.7-15.3); LYMPH % 22.9 % (8-40); MCH 29.4 pg (25.7-33.7); MCHC 34.1 g/dl (32.0-36.0); MEAN CELL VOLUME 86.2 fl (80-96); MEAN PLT VOLUME 7.1 fl (7.5-11.1); MONO % 9.2 % (3.8-10.2); NEUT % 67.4 % (42.8-82.8); PLATELET COUNT 262 10^3/uL (134-434); RBC 4.33 M/mm3 (3.60-5.2); RDW 14.5 % (11.6-15.6); WHITE BLOOD COUNT 5.9 K/mm3 (4.0-10.0)
[2024-02-03] MEDS: ACETAMINOPHEN 1000 MG/100 ML BAG IVPB ONE (16:42)
[2024-02-03] MEDS: SODIUM CHLORIDE 0.9% 1000 ML INFUS.BAG IV ONE (16:42)
[2024-02-03] MEDS: KETOROLAC TROMETHAMINE 15 MG/ML VIAL IVPUSH ONE (16:43)
[2024-02-03] MEDS: ONDANSETRON 4 MG/2 ML VIAL IVPUSH ONE (16:43)
[2024-02-03] MEDS: LIDOCAINE 4% PATCH TP ONE (16:43)
[2024-02-03 16:50] LABS: ALBUMIN 3.9 g/dl (3.4-5.0); BLOOD UREA NITROGEN 9.5 mg/dL (7-18)
[2024-02-03 16:53] LABS: CREATININE 0.8 mg/dL (0.55-1.3)
[2024-02-03 16:54] LABS: BILIRUBIN,TOTAL 0.5 mg/dL (0.2-1)
[2024-02-03 16:55] LABS: TOT PROT 7.7 g/dl (6.4-8.2)
[2024-02-03 18:13] VITALS: BP 128/83; PULSE 96; TEMP 98.8
[2024-02-03] MEDS ORDERED: LIDOCAINE PATCH REMOVAL MC SCH (22:00)
== END 2024-02-03 18:45 | disposition home or self-care (01) ==
LOC: JER 14:27
PROC: 3E033NZ Introduction of Analgesics, Hypnotics, Sedatives into Peripheral Vein, Percutaneous Approach (ICD-10-PCS; principal; 2024-02-03)
PROC: 3E0333Z Introduction of Anti-inflammatory into Peripheral Vein, Percutaneous Approach (ICD-10-PCS; 2024-02-03)
PROC: 3E033GC Introduction of Other Therapeutic Substance into Peripheral Vein, Percutaneous Approach (ICD-10-PCS; 2024-02-03)
DX: M54.2 Cervicalgia (principal); R11.0 Nausea; R52 Pain, unspecified; R43.9 Unspecified disturbances of smell and taste; B34.9 Viral infection, unspecified; R74.01 Elevation of levels of liver transaminase levels; Z20.822 Contact with and (suspected) exposure to COVID-19
CPT/HCPCS: 0241U-QW; 36415; 80053; 85025; 99284-25; J0131